=== PATIENT | female | born 1955 | race Two or more races ===

== ENCOUNTER 2018-01-26 10:59 | Day surgery (SDC) | payer MEDICARE, OTHER ==
[~2018-01-26 10:59] MED LIST: PROPOFOL INJ 200 MG/20 ML VIAL IV ONE
[2018-01-26] MEDS ORDERED: PROPOFOL INJ 200 MG/20 ML VIAL IV ONE (13:01)
[2018-01-26 13:33] VITALS: BP 121/68
--- NOTE | 2018-01-26 14:23 | Operative Report ---
Operative Report DATE OF SURGERY: 01/26/18 Operative Report: The risks, benefits and alternatives of the procedure including risks of bleeding, perforation requiring surgery I explained to the patient in detail and informed consent was obtained. Patient is brought back to the endoscopy suite and placed in the left, lateral decubital position. Timeout was called. Propofol medications administered. A rectal examination is done which did not reveal any masses, tears or fissures. An Olympus videoscope was inserted into the patient's rectum. The scope was then carefully advanced all the way to the cecum. The cecum was identified by the usual anatomical landmarks including the ileocecal valve as well as the appendiceal office. Photodocumentation is obtained. The scope was then sequentially pulled back via the various segments of the colon including the ascending colon, hepatic flexure, transverse colon, splenic flexure, descending colon finding to the rectosigmoid portions of the colon. Retroflexion maneuvers performed. PREOPERATIVE DIAGNOSIS: Colorectal cancer screening POSTOPERATIVE DIAGNOSIS: Redundant colon. Mild right-sided colon inflammation status post biopsy. Diverticulosis. Internal hemorrhoids OPERATION: Colonoscopy with biopsy SURGEON: JORGE SIMS ANESTHESIA: LMAC TISSUE REMOVED OR ALTERED: As noted above. COMPLICATIONS: None. ESTIMATED BLOOD LOSS: None. INTRAOPERATIVE FINDINGS: As noted above. PROCEDURE: Patient tolerated the procedure well. No immediate postprocedure comp occasions are noted. Patient discharged in good condition. Discharge date 01/26/2018. Discharge diet: Regular. Discharge activity: Regular. 2-3 week follow-up to discuss findings. Patient is instructed call the office or proceed to the emergency room should there be any further problems or questions. We will wait on pathology. Surveillance colonoscopy in 5 years.
== END 2018-01-26 13:45 | disposition home or self-care (01) ==
LOC: END 10:59
PROVIDERS: ATTEND Internal Medicine Gastroenterology
PROC: 0DBF8ZX Excision of Right Large Intestine, Via Natural or Artificial Opening Endoscopic, Diagnostic (ICD-10-PCS; principal; 2018-01-26 14:00)
DX: Z12.11 Encounter for screening for malignant neoplasm of colon (principal); K52.9 Noninfective gastroenteritis and colitis, unspecified; K57.30 Diverticulosis of large intestine without perforation or abscess without bleeding; K64.8 Other hemorrhoids; I10 Essential (primary) hypertension; E78.5 Hyperlipidemia, unspecified; E11.9 Type 2 diabetes mellitus without complications; F17.210 Nicotine dependence, cigarettes, uncomplicated; Z79.899 Other long term (current) drug therapy; Z88.8 Allergy status to other drugs, medicaments and biological substances; Z88.0 Allergy status to penicillin
CPT/HCPCS: 45380; 82962; 88305 ×2; J2704; 811

== ENCOUNTER → 2018-09-16 | Outpatient (CLI) | payer MEDICARE ==
--- NOTE | 2018-09-16 14:58 | RADIOLOGY REPORT (SQ) ---
EXAM DESCRIPTION: CT HEAD WITHOUT COMPLETED DATE/TIME: 09/16/2018 2:20 pm REASON FOR STUDY: ALTERED MENTAL STATUS, UNSPECIFIED Z12.31 ENCNTR SCREEN MAMMOGRAM FOR MALIGNANT N EOPLASM OF RANDI R41.82 ALTERED MENTAL STATUS, UNSPECIFIED COMPARISON: None. TECHNIQUE: Axial images acquired through the brain without intravenous contrast. Images reviewed wi th bone, brain and subdural windows. Additional sagittal and coronal reconstructions were generated. Images stored on PACS. All CT scanners at this facility use dose modulation, iterative reconstruction, and/or weight based d osing when appropriate to reduce radiation dose to as low as reasonably achievable (ALARA). [facility]: Dose Right [facility]: CareDose [facility]: Dose Right [facility]: Teradose 4D [facility]: Smart Technologies RADIATION DOSE: CT Rad equipment meets quality standard of care and radiation dose reduction techniq ues were employed. CTDIvol: 48.6 mGy. DLP: 953 mGy-cm. mGy. LIMITATIONS: None. FINDINGS: VENTRICLES: Normal size and contour. CEREBRUM: There is encephalomalacia involving the inferior aspect of each frontal lobe, left more chandrika n right. There is encephalomalacia in the left temporal lobe anteriorly. Normal florence/white matter di fferentiation. No areas of low density in the white matter. CEREBELLUM: No masses. No hemorrhage. No alteration of density. No evidence for acute infarction. EXTRAAXIAL SPACES: No fluid collections. No masses. ORBITS AND GLOBE: No intra- or extraconal masses. Normal contour of globe without masses. CALVARIUM: No fracture. PARANASAL SINUSES: No fluid or mucosal thickening. SOFT TISSUES: No mass or hematoma. OTHER: No other significant finding. 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 No acute intracranial imagi ng findings. EVIDENCE OF ACUTE STROKE: NO. COMMENT: Quality ID # [id number]: Final reports with documentation of one or more dose reduction techniques (e.g., Automated exposure control, adjustment of the mA and/or kV according to patient size, use of iterative reconstruction technique) TECHNICAL DOCUMENTATION: JOB ID: [id number] [email or web address]- All Rights Reserved Reading location - IP/workstation name: [email or web address]
--- NOTE | 2018-09-16 15:35 | WOMENS IMAGING REPORT ---
EXAM DESCRIPTION: 3D SCREENING MAMMO BILAT COMPLETED DATE/TIME: 09/16/2018 1:07 pm REASON FOR STUDY: SCREENING MAMMO Z12.31 ENCNTR SCREEN MAMMOGRAM FOR MALIGNANT NEOPLASM OF RANDI COMPARISON: None. TECHNIQUE: Standard craniocaudal and mediolateral oblique views of each breast recorded using digita l acquisition and breast tomosynthesis. LIMITATIONS: None. FINDINGS: Findings present which are benign by mammographic criteria. No suspicious masses, calcifi cations or architectural distortion. Pertinent benign findings: Asymmetry left. Read with the assistance of CAD. [facility] - R2 Cenova Version 1.3 .[facility] - R2 Cenova Version 1.3 .[facility] - R2 Cenova Version 2.4 .[facility] [place] - R2 Cenova Version 2.4 .[facility] - R2 Rn Relief Charge Version 9.2 Benign mammographic findings may include one or more of the following: Smooth masses, popcorn/rim/co arse calcifications, asymmetries, post-procedure changes, and lesions with long-standing stability. IMPRESSION: BENIGN MAMMOGRAPHIC FINDINGS. BIRADS 2 BREAST DENSITY: b. There are scattered areas of fibroglandular density. BIRAD: 2 BENIGN FINDING(S) RECOMMENDATION: RECOMMENDATION: ROUTINE SCREENING COMMENT: The patient has been notified of the results by letter per SA requirements. Additional no tification policies are in place for contacting patient with suspicious or incomplete findings. Quality ID #[id number]: The [employer] recommends an annual screening mammogram for women aged 40 years or over. This facility utilizes a reminder system to ensure that all patients receive reminder letters, and/or direct phone calls for appointments. This includes reminders for routine scr eening mammograms, diagnostic mammograms, or other Breast Imaging Interventions when appropriate. Th is patient will be placed in the appropriate reminder system. The [employer] (ACR) has developed recommendations for screening MRI of the breast s in certain patient populations, to be used in conjunction with mammography. Breast MRI surveillanc e may be appropriate for women with more than 20% lifetime risk of developing breast cancer as deter mined by genetic testing, significant family history of the disease, or history of mantle radiation f or Hodgkins Disease. ACR Practice Guidelines 2008. DBT Technology DBT is a type of tomographic mammography. With conventional mammography, overlapping breast tissue ma y make lesions difficult to detect, even with good compression. DBT uses an x-ray tube that rotates a round the breast, taking images at different angles. These images are then combined to create thin sl ices of the breast that the radiologist can view as a 3D reconstruction. The Hologic unit can perform full-field digital mammograms (2D imaging); or DBT (3D imaging); or both, in a combination mode that quickly performs both the mammogram and the tomosynthesis scan while the breast is still compressed. PQRS 6045F: Fluoroscopic imaging is not utilized for breast tomosynthesis. TECHNICAL DOCUMENTATION: FINDING NUMBER: (1) ASSESSMENT: (1) JOB ID: [id number] [employer]- All Rights Reserved Reading location - IP/workstation name: [email or web address] [email or web address]
== END ==
LOC: WI 12:35
PROVIDERS: ATTEND Physician Assistant
DX: Z12.31 Encounter for screening mammogram for malignant neoplasm of breast (principal); G93.89 Other specified disorders of brain; R41.82 Altered mental status, unspecified
CPT/HCPCS: 70450; 77063; 77067

== ENCOUNTER 2019-08-28 20:08 | Emergency (ER) | payer MEDICARE ==
--- NOTE | 2019-08-28 20:47 | ER Document Report ---
ED General - General Chief Complaint: Altered Mental Status Stated Complaint: CONFUSION Time Seen by Provider: 08/28/19 20:36 Primary Care Provider: ANJALI CUELLAR PA-C [Primary Care Provider] - Follow up in 3-5 days Notes: Patient is a 64-year-old female with history of memory loss and TBI and diabetes that presents to the emergency department for chief complaint of possible confusion. Patient apparently was driving her car, and was speeding, and police do not sirens and were pursuing her, and she did not chute puller initially, and seemed confused to the police officers, and they were concerned she may be under the influence of they brought her to the emergency department. The patient does confirm the story, she states she was driving about [address], and states that she got turned around and was going the wrong direction, she states she does get confused, at times, and was not aware that she was being pursued by police. Her sister is at bedside, and states that the patient is at her baseline, and she does have a degree of confusion, and has been having memory issues. She does not think she is any worse than her baseline. The patient at this time is alert and oriented. Past Medical History: Depression, TBI, diabetes mellitus, essential tremor Past Surgical History: Denies any recent or pertinent surgical history Social History: Lives at home with family, denies tobacco, alcohol or drug use. Family History: Reviewed and noncontributory for presenting illness Allergies: Reviewed, see documented allergy list. REVIEW OF SYSTEMS: Other than noted above, the 12 point review of systems was reviewed with the patient and were negative, all pertinent findings are included in the HPI. PHYSICAL EXAMINATION: Vital signs reviewed, nursing noted reviewed. GENERAL: Well-appearing, well-nourished and in no acute distress. HEAD: Atraumatic, normocephalic. EYES: Eyes appear normal, extraocular movements intact, sclera anicteric, conjunctiva are normal. ENT: nares patent, oropharynx clear without exudates. Moist mucous membranes. NECK: Normal range of motion, supple without lymphadenopathy LUNGS: Breath sounds clear to auscultation bilaterally and equal. No wheezes rales or rhonchi. HEART: Regular rate and rhythm without murmurs ABDOMEN: Soft, nontender, normoactive bowel sounds. No rebound, guarding, or rigidity. No masses appreciated. EXTREMITIES: Nontender, good range of motion, no pitting or edema. NEUROLOGICAL: No focal neurological deficits. Moves all extremities spontaneously Motor and sensory grossly intact on exam. Resting tremor noted on exam, chronic per patient and family PSYCH: Normal mood, normal affect. SKIN: Warm, Dry, normal turgor, no rashes or lesions noted on exposed skin TRAVEL OUTSIDE OF THE [place] IN LAST 30 DAYS: No - Related Data Allergies/Adverse Reactions: acetaminophen [From Coricidin] Allergy (Mild, Verified 01/26/18 11:18) RASH chlorpheniramine [From Coricidin] Allergy (Mild, Verified 01/26/18 11:18) RASH Penicillins Allergy (Mild, Verified 01/26/18 11:18) Hives phenylpropanolamine [From Coricidin] Allergy (Mild, Verified 01/26/18 11:18) RASH Past Medical History - Social History Smoking Status: Never Smoker Family History: Reviewed & Not Pertinent - Past Medical History Cardiac Medical History: Reports: Hx Hypertension Denies: Hx Coronary Artery Disease, Hx Heart Attack Pulmonary Medical History: Denies: Hx Asthma, Hx Bronchitis, Hx COPD, Hx Pneumonia Neurological Medical History: Reports: Hx Seizures - D/T OVERDOSE OF SOME MEDICATION. Denies: Hx Cerebrovascular Accident Musculoskeletal Medical History: Denies Hx Arthritis - Immunizations Hx Diphtheria, Pertussis, Tetanus Vaccination: No Physical Exam - Vital signs Vitals: Temp Resp BP Pulse Ox 97.7 F 27 H 111/96 H 96 08/28/19 20:24 08/28/19 20:24 08/28/19 20:24 08/28/19 20:24 Course - Re-evaluation Re-evalutation: Patient seen and examined, vital signs reviewed, patient appeared to be at her baseline according to her family, please felt the patient may be under the influence, but I feel that this is the patient's baseline mental state, I am concerned now that she was getting confused with driving, and it was nighttime, and I feel it would be in her best interest not to drive until having testing at the [facility], or discussing with her primary care doing specific memory testing to see if she should even be driving at all. Sister and patient were in agreement with this. Do not think any further testing is needed at this time, blood work had been drawn already and sent that was ordered by triage, and was reviewed she had a mild hypokalemia, advised to increase potassium in the diet, otherwise blood work was unremarkable. At this point patient was discharged to follow-up as noted above. Laboratory 08/28/19 08/28/19 08/28/19 19:50 19:50 19:50 WBC 6.2 RBC 4.02 Hgb 12.8 Hct 37.0 MCV 92 MCH 31.8 MCHC 34.6 RDW 13.5 Plt Count 269 Lymph % (Auto) 35.8 Rooks % (Auto) 8.9 Eos % (Auto) 1.3 Baso % (Auto) 0.4 Absolute Neuts (auto) 3.3 Absolute Lymphs (auto) 2.2 Absolute Monos (auto) 0.6 Absolute Eos (auto) 0.1 Absolute Basos (auto) 0.0 Seg Neutrophils % 53.6 PT 12.2 INR 0.91 APTT 28.8 Sodium 134.9 L Potassium 3.2 L Chloride 96 L Carbon Dioxide 28 Anion Gap 11 BUN 21 H Creatinine 0.94 Est GFR ( Amer) > 60 Est GFR (MDRD) Non-Af > 60 Glucose 227 H Calcium 9.7 Magnesium 1.8 Total Bilirubin 0.3 Direct Bilirubin 0.1 Neonat Total Bilirubin Not Reportable Neonat Direct Bilirubin Not Reportable Neonat Indirect Bili Not Reportable AST 32 ALT 18 Alkaline Phosphatase 114 Creatine Kinase 55 CK-MB (CK-2) Troponin I Total Protein 8.2 Albumin 4.4 Urine Color Urine Appearance Urine pH Ur Specific [place] Urine Protein Urine Glucose (UA) Urine Ketones Urine Blood Urine Nitrite Urine Bilirubin Urine Urobilinogen Ur Leukocyte Esterase Urine WBC (Auto) Urine RBC (Auto) Urine Bacteria (Auto) Squamous Epi Cells Auto Urine Mucus (Auto) Urine Ascorbic Acid Urine Opiates Screen Urine Methadone Screen Ur Barbiturates Screen Ur Phencyclidine Scrn Ur Amphetamines Screen U Benzodiazepines Scrn Urine Cocaine Screen U Marijuana (THC) Screen Serum Alcohol < 10 08/28/19 08/28/19 08/28/19 19:50 20:13 20:13 WBC RBC Hgb Hct MCV MCH MCHC RDW Plt Count Lymph % (Auto) Rooks % (Auto) Eos % (Auto) Baso % (Auto) Absolute Neuts (auto) Absolute Lymphs (auto) Absolute Monos (auto) Absolute Eos (auto) Absolute Basos (auto) Seg Neutrophils % PT INR APTT Sodium Potassium Chloride Carbon Dioxide Anion Gap BUN Creatinine Est GFR ( Amer) Est GFR (MDRD) Non-Af Glucose Calcium Magnesium Total Bilirubin Direct Bilirubin Neonat Total Bilirubin Neonat Direct Bilirubin Neonat Indirect Bili AST ALT Alkaline Phosphatase Creatine Kinase CK-MB (CK-2) 0.57 Troponin I < 0.012 Total Protein Albumin Urine Color YELLOW Urine Appearance SLIGHTLY-CLOUDY Urine pH 5.0 Ur Specific [place] 1.013 Urine Protein NEGATIVE Urine Glucose (UA) NEGATIVE Urine Ketones NEGATIVE Urine Blood NEGATIVE Urine Nitrite NEGATIVE Urine Bilirubin NEGATIVE Urine Urobilinogen NEGATIVE Ur Leukocyte Esterase TRACE H Urine WBC (Auto) 6 Urine RBC (Auto) 3 Urine Bacteria (Auto) TRACE Squamous Epi Cells Auto 3 Urine Mucus (Auto) RARE Urine Ascorbic Acid 40 H Urine Opiates Screen NEGATIVE Urine Methadone Screen NEGATIVE Ur Barbiturates Screen NEGATIVE Ur Phencyclidine Scrn NEGATIVE Ur Amphetamines Screen NEGATIVE U Benzodiazepines Scrn NEGATIVE Urine Cocaine Screen NEGATIVE U Marijuana (THC) Screen NEGATIVE Serum Alcohol - Vital Signs Vital signs: Temp Pulse Resp BP Pulse Ox 97.7 F 19 146/84 H 96 08/28/19 20:24 08/28/19 20:25 08/28/19 20:34 08/28/19 20:25 - Laboratory Result Diagrams: 08/28/19 19:50 08/28/19 19:50 Laboratory results interpreted by me: 08/28/19 08/28/19 19:50 20:13 Sodium 134.9 L Potassium 3.2 L Chloride 96 L BUN 21 H Glucose 227 H Ur Leukocyte Esterase TRACE H Urine Ascorbic Acid 40 H Discharge - Discharge Clinical Impression: Confusion Condition: Stable Disposition: HOME, SELF-CARE Additional Instructions: Until you can be seen by your primary care physician, I recommend not driving or operating a motor vehicle, please go to the DMV, to have seasonal driver testing, after this incident, I think that is the safest thing to do going forward. Referrals: ANJALI CUELLAR PA-C [Primary Care Provider] - Follow up in 3-5 days
[2019-08-28 20:56] LABS: INTERNATIONAL RATION (INR) 0.91; PROTHROMBIN TIME 12.2 SEC (11.4-15.4)
[2019-08-28 20:57] LABS: PARTIAL THROMBOPLASTIN TIME 28.8 SEC (23.5-35.8)
[2019-08-28 21:00] LABS: ABSOLUTE EOSINOPHILS # (AUTO) 0.1 10^3/uL (0.0-0.6); ABSOLUTE LYMPHOCYTES (AUTO) 2.2 10^3/uL (0.5-4.7); ABSOLUTE MONOCYTES (AUTO) 0.6 10^3/uL (0.1-1.4); ABSOLUTE NEUT (AUTO) 3.3 10^3/uL (1.7-8.2); BASOPHILS % (AUTO) 0.4 % (0-2); EOSINOPHILS % (AUTO) 1.3 % (0-6); HEMOGLOBIN 12.8 g/dL (12.0-15.5); LYMPHOCYTES % (AUTO) 35.8 % (13-45); MEAN CORPUSCULAR HEMOGLOBIN 31.8 pg (27.0-33.4); MEAN CORPUSCULAR HGB CONC 34.6 g/dL (32.0-36.0); MEAN CORPUSCULAR VOLUME 92 fl (80-97); MONOCYTES % (AUTO) 8.9 % (3-13); PLATELET COUNT 269 10^3/uL (150-450); RED BLOOD COUNT 4.02 10^6/uL (3.72-5.28); RED CELL DISTRIBUTION WIDTH 13.5 % (11.5-14.0); SEGMENTED NEUTROPHILS % (AUTO) 53.6 % (42-78); TOTAL CELLS COUNTED % (AUTO) 100 %; WHITE BLOOD COUNT 6.2 10^3/uL (4.0-10.5)
[2019-08-28 21:07] LABS: ALBUMIN 4.4 g/dL (3.5-5.0); ALCOHOL < 10 mg/dL (NONE DETECTED); ALKALINE PHOSPHATASE 114 U/L (38-126); ANION GAP 11 (5-19); ASPARTATE AMINO TRANSFERASE 32 U/L (14-36); BILIRUBIN,DIRECT 0.1 mg/dL (0.0-0.4); BILIRUBIN,TOTAL 0.3 mg/dL (0.2-1.3); BLOOD UREA NITROGEN 21 mg/dL (7-20); CALCIUM 9.7 mg/dL (8.4-10.2); CARBON DIOXIDE 28 mmol/L (22-30); CHLORIDE 96 mmol/L (98-107); CREATINE KINASE 55 U/L (30-135); GLUCOSE 227 mg/dL (75-110); POTASSIUM 3.2 mmol/L (3.6-5.0); TOTAL PROTEIN 8.2 g/dL (6.3-8.2)
[2019-08-28 21:07] LABS: APPEARANCE,URINE SLIGHTLY-CLOUDY; BILIRUBIN,URINE NEGATIVE (NEGATIVE); COLOR,URINE YELLOW; GLUCOSE, URINE NEGATIVE (NEGATIVE); KETONES,URINE NEGATIVE (NEGATIVE); LEUKOCYTE ESTERASE,URINE TRACE (NEGATIVE); NITRITE,URINE NEGATIVE (NEGATIVE); PROTEIN,URINE NEGATIVE (NEGATIVE); URINE SPECIFIC GRAVITY 1.013; UROBILINOGEN,URINE NEGATIVE mg/dL (<2.0)
[2019-08-28 21:15] LABS: URINE AMPHETAMINES SCREEN NEGATIVE; URINE BARBITURATES SCREEN NEGATIVE; URINE BENZODIAZEPINES SCREEN NEGATIVE; URINE COCAINE SCREEN NEGATIVE; URINE MARIJUANA (THC) SCREEN NEGATIVE; URINE METHADONE SCREEN NEGATIVE; URINE PHENCYCLIDINE SCREEN NEGATIVE
[2019-08-28 21:16] LABS: CREATINE KINASE MB 0.57 ng/mL (<4.55)
[2019-08-28 21:19] LABS: TROPONIN I < 0.012 ng/mL
[2019-08-28 21:22] VITALS: BP 146/84
== END 2019-08-28 21:18 | disposition home or self-care (01) ==
LOC: ER 20:08
DX: R41.0 Disorientation, unspecified (principal); E87.6 Hypokalemia; R25.1 Tremor, unspecified; I10 Essential (primary) hypertension; E11.9 Type 2 diabetes mellitus without complications; Z87.820 Personal history of traumatic brain injury; Z88.8 Allergy status to other drugs, medicaments and biological substances; Z88.0 Allergy status to penicillin
CPT/HCPCS: 36415; 80053; 80307; 81001; 82550; 82553; 83735; 84484; 85025; 85610; 85730; 99285

== ENCOUNTER 2019-09-24 12:26 | Emergency (ER) | payer MEDICARE ==
--- NOTE | 2019-09-24 13:17 | ER Document Report ---
ED Medical Screen (RME) - General Chief Complaint: Fall Stated Complaint: FALL-HEAD INJURY Time Seen by Provider: 09/24/19 13:13 Primary Care Provider: ANJALI CUELLAR PA-C [Primary Care Provider] - Follow up as needed Mode of Arrival: Ambulatory Information source: Patient Notes: 64-year-old female presented to ED for head injury last night at 4:30 in the morning. She states she went outside to smoke picked up her folding chair started to come into the house was landing on her chair slipped and fell hitting her head on the cement. She denies any loss of consciousness. Denies any nausea or vomiting. She states she is not on any blood thinners. No change in orientation. She states she is not having any headache at this time. I will have her seen by another provider to have the injury cleaned to the back of the head and examined. She smokes a pack a day denies alcohol or illicit drugs. I have greeted and performed a rapid initial assessment of this patient. A comprehensive ED assessment and evaluation of the patient, analysis of test results and completion of medical decision making process will be conducted by an additional ED providers. TRAVEL OUTSIDE OF THE [place] IN LAST 30 DAYS: No - Related Data Allergies/Adverse Reactions: acetaminophen [From Coricidin] Allergy (Mild, Verified 01/26/18 11:18) RASH chlorpheniramine [From Coricidin] Allergy (Mild, Verified 01/26/18 11:18) RASH Penicillins Allergy (Mild, Verified 01/26/18 11:18) Hives phenylpropanolamine [From Coricidin] Allergy (Mild, Verified 01/26/18 11:18) RASH Past Medical History - Past Medical History Cardiac Medical History: Reports: Hx Hypercholesterolemia, Hx Hypertension Denies: Hx Coronary Artery Disease, Hx Heart Attack Pulmonary Medical History: Denies: Hx Asthma, Hx Bronchitis, Hx COPD, Hx Pneumonia Neurological Medical History: Reports: Hx Seizures - D/T OVERDOSE OF SOME MEDICATION. Denies: Hx Cerebrovascular Accident Endocrine Medical History: Reports: Hx Diabetes Mellitus Type 2 Musculoskeltal Medical History: Denies Hx Arthritis Psychiatric Medical History: Reports: Hx Bipolar Disorder, Hx Depression - Immunizations Hx Diphtheria, Pertussis, Tetanus Vaccination: No Physical Exam - Vital signs Vitals: Temp Pulse Resp BP Pulse Ox 97.5 F 75 22 H 130/70 H 97 09/24/19 12:34 09/24/19 12:34 09/24/19 12:34 09/24/19 12:34 09/24/19 12:34 Course - Vital Signs Vital signs: Temp Pulse Resp BP Pulse Ox 97.5 F 75 22 H 130/70 H 97 09/24/19 12:34 09/24/19 12:34 09/24/19 12:34 09/24/19 12:34 09/24/19 12:34 Doctor's Discharge - Discharge Referrals: ANJALI CUELLAR PA-C [Primary Care Provider] - Follow up as needed
[2019-09-24] MEDS ORDERED: DIPH/PERTUSS(ACELL)/TETANUS VAC/PF 0.5 ML SYR (>=10YO) IM ONE (16:02)
--- NOTE | 2019-09-24 16:21 | ER Document Report ---
HPI - HPI Time Seen by Provider: 09/24/19 13:13 Pain Level: Denies Context: Patient is a 64-year-old female with a history of hypertension, high cholesterol, type 2 diabetes, CVA, TBI as a child, bipolar who presents to the emergency department with chief complaint of head injury. Patient states last night around 4:30 in the morning she went outside to smoke a cigarette. Patient reports as she was ambulating back into the house her hands were full and she was carrying a lawn chair. Patient reports she thinks she lost her footing causing her to fall backwards hitting her head. Patient reports she did hit her head on the cement. Patient denies a loss of consciousness. Patient denies vomiting afterwards. Patient does live with her sister. Sister states that the patient has been acting herself. She reports patient has eaten without vomiting. She states the patient has not had any repetitive speech or altered level of consciousness. Patient and sister deny use of blood thinners on the patient. Sister states that she did have a CVA 6 to 7 months ago and at that time was having issues with her balance. Patient reports having some bleeding noted to the back of the head. She reports the blood has now dried but she is unsure if there is a laceration present. Patient denies back or neck pain. - CONSTITUTIONAL Constitutional: DENIES: Fever, Chills - REPRODUCTIVE Reproductive: DENIES: : Past Medical History - General Information source: Patient - Social History Smoking Status: Current Every Day Smoker Chew tobacco use (# tins/day): No Frequency of alcohol use: None Drug Abuse: None Lives with: Family Family History: Reviewed & Not Pertinent Patient has suicidal ideation: No Patient has homicidal ideation: No - Past Medical History Cardiac Medical History: Reports: Hx Hypercholesterolemia, Hx Hypertension Denies: Hx Coronary Artery Disease, Hx Heart Attack Pulmonary Medical History: Reports: None Denies: Hx Asthma, Hx Bronchitis, Hx COPD, Hx Pneumonia EENT Medical History: Reports: None Neurological Medical History: Reports: Hx Seizures - D/T OVERDOSE OF SOME MEDICATION. Denies: Hx Cerebrovascular Accident Endocrine Medical History: Reports: Hx Diabetes Mellitus Type 2 Renal/ Medical History: Reports: None Malignancy Medical History: Reports: None GI Medical History: Reports: None Musculoskeletal Medical History: Reports None, Denies Hx Arthritis Skin Medical History: Reports None Psychiatric Medical History: Reports: Hx Bipolar Disorder, Hx Depression Traumatic Medical History: Reports: Hx Traumatic Brain Injury Infectious Medical History: Reports: None - Immunizations Hx Diphtheria, Pertussis, Tetanus Vaccination: No Vertical Provider Document - CONSTITUTIONAL Agree With Documented VS: Yes Exam Limitations: No Limitations General Appearance: No Apparent Distress Notes: GENERAL: Well-appearing, well-nourished and in no acute distress. HEAD: Hematoma noted posterior aspect of the parietal bone, dried blood without active bleeding, normocephalic. Negative varela's sign. EYES: Pupils equal round and reactive to light - 3 mm bilaterally, glasses intact, extraocular movements intact, sclera anicteric, conjunctiva are normal. ENT: TMs normal, nares patent, oropharynx clear without exudates. Moist mucous membranes. NECK: Normal range of motion, supple without lymphadenopathy or JVD. LUNGS: Breath sounds clear to auscultation bilaterally and equal. No wheezes rales or rhonchi. HEART: Regular rate and rhythm without murmurs, rubs or gallops. ABDOMEN: Soft, nontender, normoactive bowel sounds. No guarding, no rebound. No masses appreciated. BACK: No cervical, thoracic, lumbar midline tenderness. No saddle anesthesia, normal distal neurovascular exam. GENITOURINARY: Deferred. EXTREMITIES: Normal range of motion, no pitting or edema. No clubbing or cyanosis. NEUROLOGICAL: Cranial nerves II through XII grossly intact. Normal speech, normal gait. PSYCH: Normal mood, normal affect. SKIN: Warm, Dry, normal turgor, no rashes or lesions noted. - INFECTION CONTROL TRAVEL OUTSIDE OF THE [place] IN LAST 30 DAYS: No Course - Re-evaluation Re-evalutation: 09/24/19 16:41 Patient attempted to go outside to smoke a cigarette. Patient reports she does smoke 2 packs of cigarettes per day. We did inform her that we are waiting on her CT scan results. The wound to the back of the head was cleansed. There is no laceration. This appears to be more of an abrasion. There is no active bleeding. Patient's Tdap was updated as the patient was unsure when her last tetanus shot was. 09/24/19 17:11 Upon reevaluation patient's head CT was negative. I did show an old injury to the frontal lobe which the patient had told us about due to her history of TBI. Patient mentating appropriately. Tetanus was updated. I did discuss strict return precautions with the sister and patient. - Vital Signs Vital signs: Temp Pulse Resp BP Pulse Ox 97.5 F 75 22 H 130/70 H 97 09/24/19 12:34 09/24/19 12:34 09/24/19 12:34 09/24/19 12:34 09/24/19 12:34 - Diagnostic Test Radiology reviewed: Reports reviewed Radiology results interpreted by me: 09/24/19 17:[address] 09/24/19 15:59 IMPRESSION: NO ACUTE INTRACRANIAL FINDINGS. EVIDENCE OF ACUTE STROKE: NO. Discharge - Discharge Clinical Impression: Fall Qualifiers: Encounter type: initial encounter Qualified Code(s): W19.XXXA - Unspecified fall, initial encounter Head injury Qualifiers: Encounter type: initial encounter Qualified Code(s): S09.90XA - Unspecified injury of head, initial encounter Condition: Stable Disposition: HOME, SELF-CARE Additional Instructions: Today you are seen in emergency department after a head injury. Your CT scan was negative for any acute fracture or bleed. The wound to your head was cleaned and a tetanus shot was given. You are being placed on head injury precautions. Please have your family member check on you multiple times throughout the next 24 hours. Please rest. Please return the emergency department for any persistent or projectile vomiting, seizure, confusion, unequal pupil size, difficulty arousing the patient or any worsening pain such as a continued headache severe headache. Head Injury Your child's examination shows no evidence of brain injury. The child can therefore be safely observed at home. Give clear liquids only for the first eight hours. Acetaminophen or ibuprofen can safely be given for pain. Follow the directions on the bottle. Do not give any medication that may alter her/his level of alertness. Limit activity for the first 24 hours -- bed rest is advisable at first. Several times during the first 24 hours, check the patient to see if the pupils are equal in size to each other, that the patient is easily arousable, and responds normally. Contact your doctor or go to the hospital if any of the following things occur: Persistent or projectile vomiting, a seizure, confusion, unequal pupil size, difficulty in arousing the patient, worsening or continued headache, or failure to improve as expected. Head Injury Precautions At this point, there is no evidence that your head injury is serious. Observation is necessary, however. Take only clear liquids for the first few hours, unless told otherwise by the doctor. If no pain medication was prescribed, you may take acetaminophen according to the directions on the bottle. Do not take any medication that may alter your level of alertness (unless you've discussed it with the doctor first). Limit activity for the first 24 hours. Bed rest is best. During the first 24 hours, check to see approximately every two to three hours that the patient is easily arousable, responds normally, and can perform common tasks such as walking without difficulty. Contact your doctor or go to the hospital if any of the following things occur: Persistent vomiting, difficulty in arousing the patient, worsening or continued headache, or failure to improve as expected. Head injuries can cause symptoms that persist for a few days or even a few weeks. Tetanus Immunization Given You have been given an immunization against tetanus. Please record this in your records. In general, a booster is needed only once every 10 years. The tetanus shot protects against tetanus or "lockjaw," which is a complication of certain wound infections (the tetanus shot cannot protect against the actual infection). The immunization site may become warm and red due to local reaction. If this occurs, apply warm compresses and take aspirin or ibuprofen to reduce inflammation and discomfort. Return for evaluation if the reaction becomes severe. Forms: Smoking Cessation Education Referrals: ANJALI CUELLAR PA-C [Primary Care Provider] - Follow up as needed
--- NOTE | 2019-09-24 17:00 | RADIOLOGY REPORT (SQ) ---
EXAM DESCRIPTION: CT HEAD WITHOUT COMPLETED DATE/TIME: 09/24/2019 4:19 pm REASON FOR STUDY: fall, hematoma back of head, hx. tbi COMPARISON: 09/16/2018 TECHNIQUE: Axial images acquired through the brain without intravenous contrast. Images reviewed wit h bone, brain and subdural windows. Images stored on PACS. All CT scanners at this facility use dose modulation, iterative reconstruction, and/or weight based d osing when appropriate to reduce radiation dose to as low as reasonably achievable (ALARA). [facility]: Dose Right [facility]: CareDose [facility]: Dose Right [facility]: Teradose 4D [facility]: Smart IPX RADIATION DOSE: CT Rad equipment meets quality standard of care and radiation dose reduction techniq ues were employed. CTDIvol: 53.2 mGy. DLP: 991 mGy-cm.. LIMITATIONS: None. FINDINGS: VENTRICLES: Normal size and contour. CEREBRUM: No hemorrhage. No midline shift. Stable appearance of frontal encephalomalacia and bilate ral periventricular white matter. No evidence for acute infarction. CEREBELLUM: No masses. No hemorrhage. No alteration of density. No evidence for acute infarction. EXTRA-AXIAL SPACES: No fluid collections. ORBITS AND GLOBE: No intra- or extraconal masses. Normal contour of globe without masses. CALVARIUM: No fracture. PARANASAL SINUSES: No fluid or mucosal thickening. SOFT TISSUES: No mass or hematoma. Minimal subcutaneous swelling in the right parietal region. OTHER: No other significant finding. IMPRESSION: NO ACUTE INTRACRANIAL FINDINGS. EVIDENCE OF ACUTE STROKE: NO. TECHNICAL DOCUMENTATION: JOB ID: [id number] [place]-72 Quality ID # [id number]: Final reports with documentation of one or more dose reduction techniques (e.g., Au tomated exposure control, adjustment of the mA and/or kV according to patient size, use of iterative reconstruction technique) 2010 [employer]- All Rights Reserved Reading location - IP/workstation name: [email or web address]
[2019-09-24 17:24] VITALS: BP 143/73
== END 2019-09-24 17:25 | disposition home or self-care (01) ==
LOC: ER 12:26
DX: S00.83XA Contusion of other part of head, initial encounter (principal); W10.9XXA Fall (on) (from) unspecified stairs and steps, initial encounter; Y93.89 Activity, other specified; Y92.009 Unspecified place in unspecified non-institutional (private) residence as the place of occurrence of the external cause; F17.210 Nicotine dependence, cigarettes, uncomplicated; I10 Essential (primary) hypertension; E11.9 Type 2 diabetes mellitus without complications; Z23 Encounter for immunization
CPT/HCPCS: 70450; 90471; 90715; 99283

== ENCOUNTER → 2019-10-01 | Outpatient (CLI) | payer MEDICARE ==
[~2019-10-01] MED LIST changes: +ALBUTEROL SULFATE 0.083% NEB 2.5 MG/3 ML AMPUL NEB ONE; -PROPOFOL INJ 200 MG/20 ML VIAL IV ONE
--- NOTE | 2019-10-01 14:19 | RADIOLOGY REPORT (SQ) ---
EXAM DESCRIPTION: CHEST 2 VIEWS COMPLETED DATE/TIME: 10/01/2019 2:05 pm REASON FOR STUDY: R06.00 DYSPNEA, UNSPECIFIED COMPARISON: None. EXAM PARAMETERS: NUMBER OF VIEWS: two views TECHNIQUE: Digital Frontal and Lateral radiographic views of the chest acquired. RADIATION DOSE: NA LIMITATIONS: none FINDINGS: LUNGS AND PLEURA: No opacities, masses or pneumothorax. No pleural effusion. MEDIASTINUM AND HILAR STRUCTURES: No masses or contour abnormalities. HEART AND VASCULAR STRUCTURES: Heart normal size. No evidence for failure. BONES: No acute findings. HARDWARE: None in the chest. OTHER: No other significant finding. IMPRESSION: NO ACUTE RADIOGRAPHIC FINDING IN THE CHEST. TECHNICAL DOCUMENTATION: JOB ID: [id number] [employer]- All Rights Reserved Reading location - IP/workstation name: [email or web address]
== END ==
LOC: RT 12:51
PROVIDERS: ATTEND Physician Assistant
DX: R06.00 Dyspnea, unspecified (principal)
CPT/HCPCS: 71046; 94729; 94727; 94060; A9270

== ENCOUNTER 2019-10-03 11:39 | Emergency (ER) | payer MEDICARE ==
[2019-10-03] MEDS ORDERED: DIPH/PERTUSS(ACELL)/TETANUS VAC/PF 0.5 ML SYR (>=10YO) IM ONE (12:01)
--- NOTE | 2019-10-03 12:02 | ER Document Report ---
ED Medical Screen (RME) - General Chief Complaint: Fall Stated Complaint: FALL/HEAD LACERATION Time Seen by Provider: 10/03/19 11:53 Primary Care Provider: ANJALI CUELLAR PA-C [Primary Care Provider] - Follow up as needed Information source: Patient Notes: Patient states that she was in a store checking out at the register stepped back fell and hit her head on the floor. Patient with laceration to occipital scalp area. Patient complains of headache and lightheadedness at this time. Patient states she did not lose consciousness. Patient reports a similar fall 9 days ago in which she was seen here previously. Patient denies any chest pain, shortness of breath or abdominal pain. Patient does complain of feeling lightheaded. I have greeted and performed a rapid initial assessment of this patient. A comprehensive ED assessment and evaluation of the patient, analysis of test results and completion of the medical decision making process will be conducted by additional ED providers. TRAVEL OUTSIDE OF THE [place] IN LAST 30 DAYS: No - Related Data Allergies/Adverse Reactions: acetaminophen [From Coricidin] Allergy (Mild, Verified 01/26/18 11:18) RASH chlorpheniramine [From Coricidin] Allergy (Mild, Verified 01/26/18 11:18) RASH Penicillins Allergy (Mild, Verified 01/26/18 11:18) Hives phenylpropanolamine [From Coricidin] Allergy (Mild, Verified 01/26/18 11:18) RASH Past Medical History - Social History Frequency of alcohol use: None Drug Abuse: None - Past Medical History Cardiac Medical History: Reports: Hx Hypercholesterolemia, Hx Hypertension Denies: Hx Coronary Artery Disease, Hx Heart Attack Pulmonary Medical History: Denies: Hx Asthma, Hx Bronchitis, Hx COPD, Hx Pneumonia Neurological Medical History: Reports: Hx Seizures - D/T OVERDOSE OF SOME MEDICATION. Denies: Hx Cerebrovascular Accident Endocrine Medical History: Reports: Hx Diabetes Mellitus Type 2 Musculoskeltal Medical History: Denies Hx Arthritis Psychiatric Medical History: Reports: Hx Bipolar Disorder, Hx Depression Traumatic Medical History: Reports: Hx Traumatic Brain Injury - Immunizations Hx Diphtheria, Pertussis, Tetanus Vaccination: No Physical Exam - Vital signs Vitals: Temp Pulse Resp BP Pulse Ox 97.4 F 77 18 166/81 H 95 10/03/19 11:51 10/03/19 11:51 10/03/19 11:51 10/03/19 11:51 10/03/19 11:51 - General General appearance: Alert Notes: Laceration to occipital scalp Course - Vital Signs Vital signs: Temp Pulse Resp BP Pulse Ox 97.4 F 77 18 166/81 H 95 10/03/19 11:51 10/03/19 11:51 10/03/19 11:51 10/03/19 11:51 10/03/19 11:51 Doctor's Discharge - Discharge Referrals: ANJALI CUELLAR PA-C [Primary Care Provider] - Follow up as needed
[2019-10-03 12:27] LABS: ABSOLUTE BASOPHILS # (AUTO) 0.1 10^3/uL (0.0-0.2); ABSOLUTE EOSINOPHILS # (AUTO) 0.1 10^3/uL (0.0-0.6); ABSOLUTE LYMPHOCYTES (AUTO) 2.1 10^3/uL (0.5-4.7); ABSOLUTE MONOCYTES (AUTO) 0.3 10^3/uL (0.1-1.4); BASOPHILS % (AUTO) 0.8 % (0-2); EOSINOPHILS % (AUTO) 1.5 % (0-6); HEMATOCRIT 38.1 % (36.0-47.0); LYMPHOCYTES % (AUTO) 32.5 % (13-45); MEAN CORPUSCULAR VOLUME 94 fl (80-97); MONOCYTES % (AUTO) 4.1 % (3-13); PLATELET COUNT 269 10^3/uL (150-450); RED BLOOD COUNT 4.05 10^6/uL (3.72-5.28); RED CELL DISTRIBUTION WIDTH 13.4 % (11.5-14.0); SEGMENTED NEUTROPHILS % (AUTO) 61.1 % (42-78); TOTAL CELLS COUNTED % (AUTO) 100 %; WHITE BLOOD COUNT 6.6 10^3/uL (4.0-10.5)
[2019-10-03 12:49] LABS: ALBUMIN 4.4 g/dL (3.5-5.0); ALCOHOL < 10 mg/dL (NONE DETECTED); ALKALINE PHOSPHATASE 108 U/L (38-126); ANION GAP 10 (5-19); ASPARTATE AMINO TRANSFERASE 24 U/L (14-36); BILIRUBIN,DIRECT 0.1 mg/dL (0.0-0.4); BILIRUBIN,TOTAL 0.4 mg/dL (0.2-1.3); BLOOD UREA NITROGEN 19 mg/dL (7-20); CALCIUM 9.7 mg/dL (8.4-10.2); CARBON DIOXIDE 28 mmol/L (22-30); CHLORIDE 98 mmol/L (98-107); GLUCOSE 273 mg/dL (75-110); POTASSIUM 3.5 mmol/L (3.6-5.0); TOTAL PROTEIN 7.8 g/dL (6.3-8.2)
--- NOTE | 2019-10-03 13:23 | RADIOLOGY REPORT (SQ) ---
EXAM DESCRIPTION: CT HEAD WITHOUT COMPLETED DATE/TIME: 10/03/2019 12:52 pm REASON FOR STUDY: fall, headache, [place] COMPARISON: 09 24 2019. TECHNIQUE: Axial images acquired through the brain without intravenous contrast. Images reviewed wi th bone, brain and subdural windows. Images stored on PACS. All CT scanners at this facility use dose modulation, iterative reconstruction, and/or weight based d osing when appropriate to reduce radiation dose to as low as reasonably achievable (ALARA). [facility]: Dose Right [facility]: CareDose [facility]: Dose Right [facility]: Teradose 4D [facility]: Smart [employer] RADIATION DOSE: CT Rad equipment meets quality standard of care and radiation dose reduction techniq ues were employed. CTDIvol: 53.2 mGy. DLP: 1017 mGy-cm. mGy. LIMITATIONS: None. FINDINGS: VENTRICLES: Normal size and contour. CEREBRUM: No significant change in bifrontal encephalomalacia. No hemorrhage. No midline shift. No evidence for acute infarction. Decreased attenuation periventricular white matter consistent chronic white matter change. CEREBELLUM: No masses. No hemorrhage. No alteration of density. No evidence for acute infarction. EXTRAAXIAL SPACES: No fluid collections. No masses. ORBITS AND GLOBE: No intra- or extraconal masses. Normal contour of globe without masses. CALVARIUM: No fracture. PARANASAL SINUSES: No fluid or mucosal thickening. SOFT TISSUES: Scalp hematoma right parietal region. OTHER: No other significant finding. IMPRESSION: No significant interval change. Scalp hematoma right parietal region. EVIDENCE OF ACUTE STROKE: NO. COMMENT: Quality ID # [id number]: Final reports with documentation of one or more dose reduction techniques (e.g., Automated exposure control, adjustment of the mA and/or kV according to patient size, use of iterative reconstruction technique) TECHNICAL DOCUMENTATION: JOB ID: [id number] [place]-69 2010 [employer]- All Rights Reserved Reading location - IP/workstation name: [email or web address]
--- NOTE | 2019-10-03 13:26 | RADIOLOGY REPORT (SQ) ---
EXAM DESCRIPTION: CHEST SINGLE VIEW COMPLETED DATE/TIME: 10/03/2019 1:07 pm REASON FOR STUDY: light headed, freq falls COMPARISON: 10/01/2019. EXAM PARAMETERS: NUMBER OF VIEWS: One view. TECHNIQUE: Single frontal radiographic view of the chest acquired. RADIATION DOSE: NA LIMITATIONS: Expiratory technique. FINDINGS: LUNGS AND PLEURA: No acute infiltrates or effusions. MEDIASTINUM AND HILAR STRUCTURES: No masses. Contour normal. HEART AND VASCULAR STRUCTURES: The heart pulmonary vasculature are normal. BONES: No acute findings. HARDWARE: None in the chest. OTHER: No other significant finding. IMPRESSION: NO ACUTE DISEASE. TECHNICAL DOCUMENTATION: JOB ID: [id number] SC-[id number] 2010 [employer]- All Rights Reserved Reading location - IP/workstation name: [email or web address]
--- NOTE | 2019-10-03 13:54 | ER Document Report ---
ED Fall - General Chief Complaint: Fall Stated Complaint: FALL/HEAD LACERATION Time Seen by Provider: 10/03/19 11:53 Primary Care Provider: ANJALI CUELLAR PA-C [Primary Care Provider] - Follow up as needed Information source: Patient Notes: Patient states that she was in a store checking out at the register stepped back fell and hit her head on the floor. Patient with laceration to occipital scalp area. Patient complains of headache and lightheadedness at this time. Patient states she did not lose consciousness. Patient reports a similar fall 9 days ago in which she was seen here previously. Patient denies any chest pain, shortness of breath or abdominal pain. Patient does complain of feeling lightheaded. TRAVEL OUTSIDE OF THE [place] IN LAST 30 DAYS: No - Related data Allergies/Adverse Reactions: acetaminophen [From Coricidin] Allergy (Mild, Verified 01/26/18 11:18) RASH chlorpheniramine [From Coricidin] Allergy (Mild, Verified 01/26/18 11:18) RASH Penicillins Allergy (Mild, Verified 01/26/18 11:18) Hives phenylpropanolamine [From Coricidin] Allergy (Mild, Verified 01/26/18 11:18) RASH Past Medical History - General Information source: Patient - Social History Smoking Status: Current Every Day Smoker Frequency of alcohol use: None Drug Abuse: None Family History: Reviewed & Not Pertinent Patient has suicidal ideation: No Patient has homicidal ideation: No - Past Medical History Cardiac Medical History: Reports: Hx Hypercholesterolemia, Hx Hypertension Denies: Hx Coronary Artery Disease, Hx Heart Attack Pulmonary Medical History: Denies: Hx Asthma, Hx Bronchitis, Hx COPD, Hx Pneumonia Neurological Medical History: Reports: Hx Seizures - D/T OVERDOSE OF SOME MEDICATION. Denies: Hx Cerebrovascular Accident Endocrine Medical History: Reports: Hx Diabetes Mellitus Type 2 Musculoskeletal Medical History: Denies Hx Arthritis Psychiatric Medical History: Reports: Hx Bipolar Disorder, Hx Depression Traumatic Medical History: Reports: Hx Traumatic Brain Injury - Immunizations Hx Diphtheria, Pertussis, Tetanus Vaccination: No Review of Systems - Review of Systems Constitutional: No symptoms reported EENT: No symptoms reported Cardiovascular: No symptoms reported Respiratory: No symptoms reported Gastrointestinal: No symptoms reported Genitourinary: No symptoms reported Female Genitourinary: No symptoms reported Musculoskeletal: See HPI Skin: See HPI Hematologic/Lymphatic: No symptoms reported Neurological/Psychological: No symptoms reported Physical Exam - Vital signs Vitals: Temp Pulse Resp BP Pulse Ox 97.4 F 77 18 166/81 H 95 10/03/19 11:51 10/03/19 11:51 10/03/19 11:51 10/03/19 11:51 10/03/19 11:51 - Notes Notes: PHYSICAL EXAMINATION: GENERAL: Well-appearing, well-nourished and in no acute distress. HEAD: Atraumatic, normocephalic. EYES: Pupils equal round and reactive to light, extraocular movements intact, conjunctiva are normal. ENT: Nares patent, oropharynx clear without exudates. Moist mucous membranes. NECK: Normal range of motion, supple without lymphadenopathy LUNGS: Breath sounds clear to auscultation bilaterally and equal. No wheezes ra les or rhonchi. HEART: Regular rate and rhythm without murmurs ABDOMEN: Soft, nontender, nondistended abdomen. No guarding, no rebound. No masses appreciated. Female : deferred Musculoskeletal: Normal range of motion, no pitting or edema. No cyanosis. NEUROLOGICAL: Cranial nerves grossly intact. Normal speech, normal gait. Normal sensory, motor exams PSYCH: Normal mood, normal affect. SKIN: Small abrasion noted to posterior scalp over the occipital area, no closure indicated. Course - Re-evaluation Re-evalutation: Laboratory 10/03/19 10/03/19 10/03/19 12:16 12:16 12:16 WBC 6.6 RBC 4.05 Hgb 13.0 Hct 38.1 MCV 94 MCH 32.0 MCHC 34.0 RDW 13.4 Plt Count 269 Lymph % (Auto) 32.5 Grand % (Auto) 4.1 Eos % (Auto) 1.5 Baso % (Auto) 0.8 Absolute Neuts (auto) 4.0 Absolute Lymphs (auto) 2.1 Absolute Monos (auto) 0.3 Absolute Eos (auto) 0.1 Absolute Basos (auto) 0.1 Seg Neutrophils % 61.1 Sodium 136.2 L Potassium 3.5 L Chloride 98 Carbon Dioxide 28 Anion Gap 10 BUN 19 Creatinine 0.98 Est GFR ( Amer) > 60 Est GFR (MDRD) Non-Af 57 L Glucose 273 H Calcium 9.7 Total Bilirubin 0.4 Direct Bilirubin 0.1 Neonat Total Bilirubin Not Reportable Neonat Direct Bilirubin Not Reportable Neonat Indirect Bili Not Reportable AST 24 ALT 18 Alkaline Phosphatase 108 Troponin I < 0.012 Total Protein 7.8 Albumin 4.4 Serum Alcohol < 10 Chest X-Ray 10/03/19 11:59 IMPRESSION: NO ACUTE DISEASE. Head CT 10/03/19 11:59 IMPRESSION: No significant interval change. Scalp hematoma right parietal region. EVIDENCE OF ACUTE STROKE: NO. - Vital Signs Vital signs: Temp Pulse Resp BP Pulse Ox 97.4 F 77 30 H 136/86 H 99 10/03/19 11:51 10/03/19 11:51 10/03/19 13:01 10/03/19 13:01 10/03/19 13:01 - Laboratory Result Diagrams: 10/03/19 12:16 10/03/19 12:16 Laboratory results interpreted by me: 10/03/19 12:16 Sodium 136.2 L Potassium 3.5 L Est GFR (MDRD) Non-Af 57 L Glucose 273 H Discharge - Discharge Clinical Impression: Scalp abrasion Qualifiers: Encounter type: initial encounter Qualified Code(s): S00.01XA - Abrasion of scalp, initial encounter Fall with injury Qualifiers: Encounter type: initial encounter Qualified Code(s): W19.XXXA - Unspecified fall, initial encounter Condition: Stable Disposition: HOME, SELF-CARE Additional Instructions: Your work-up in the emergency department today was unremarkable. The contusion/abrasion to the back of her head does not require closure. Please follow-up with your primary care provider, call them Friday to schedule an appointment. Referrals: ANJALI CUELLAR PA-C [Primary Care Provider] - Follow up as needed
[2019-10-03 13:59] VITALS: BP 136/86
--- NOTE | 2019-10-03 23:25 | EKG REPORT ---
SEVERITY:- BORDERLINE ECG - SINUS RHYTHM BORDERLINE T WAVE ABNORMALITIES : Confirmed by: John Garcia 03-Oct-2019 23:24:32
== END 2019-10-03 13:59 | disposition home or self-care (01) ==
LOC: ER 11:39
DX: S00.01XA Abrasion of scalp, initial encounter (principal); S00.03XA Contusion of scalp, initial encounter; W19.XXXA Unspecified fall, initial encounter; Y93.89 Activity, other specified; Y92.512 Supermarket, store or market as the place of occurrence of the external cause; R51 Headache; R42 Dizziness and giddiness; F17.200 Nicotine dependence, unspecified, uncomplicated; I10 Essential (primary) hypertension; E11.9 Type 2 diabetes mellitus without complications; Z88.8 Allergy status to other drugs, medicaments and biological substances; Z88.0 Allergy status to penicillin
CPT/HCPCS: 36415; 70450; 71045; 80053; 80307; 84484; 85025; 90471; 90715; 93005; 93010; 99284

== ENCOUNTER 2019-10-05 14:11 | Emergency (ER) | payer MEDICARE ==
--- NOTE | 2019-10-05 14:21 | ER Document Report ---
ED Medical Screen (RME) - General Chief Complaint: Buttock Injury Stated Complaint: BUTTOCKS PAIN Time Seen by Provider: 10/05/19 14:17 Primary Care Provider: ANJALI CUELLAR PA-C [Primary Care Provider] - Follow up as needed TRAVEL OUTSIDE OF THE [place].S. IN LAST 30 DAYS: No - HPI Notes: 10/05/19 14:45 64-year-old female to the emergency department with complaints of low back and b uttocks pain after she sustained a fall several days ago. She states that she was in [employer] when she fell back onto her back and struck her head. She states that she was actually seen the same day because when she struck her head she also had some bleeding from the head. She states she was seen here but at the time was not experiencing back or sacral pain. She states that she has not been taking any medicine for her pain because she was not prescribed any. Denies any bladder or bowel incontinence, saddle paresthesia, radiculopathy, difficulty ambulating, fevers, IV drug abuse, or any other complaints. I performed a brief medical screening exam on this patient and determined that this patient needs further evaluation and management from [place] side ER provider. I have ordered labs and imaging studies as indicated to aid in expediting the patient's care. - Related Data Allergies/Adverse Reactions: acetaminophen [From Coricidin] Allergy (Mild, Verified 10/05/19 14:18) RASH chlorpheniramine [From Coricidin] Allergy (Mild, Verified 10/05/19 14:18) RASH Penicillins Allergy (Mild, Verified 10/05/19 14:18) Hives phenylpropanolamine [From Coricidin] Allergy (Mild, Verified 10/05/19 14:18) RASH Past Medical History - Past Medical History Cardiac Medical History: Reports: Hx Hypercholesterolemia, Hx Hypertension Denies: Hx Coronary Artery Disease, Hx Heart Attack Pulmonary Medical History: Denies: Hx Asthma, Hx Bronchitis, Hx COPD, Hx Pneumonia Neurological Medical History: Reports: Hx Seizures - D/T OVERDOSE OF SOME MEDICATION. Denies: Hx Cerebrovascular Accident Endocrine Medical History: Reports: Hx Diabetes Mellitus Type 2 Musculoskeltal Medical History: Denies Hx Arthritis Psychiatric Medical History: Reports: Hx Bipolar Disorder, Hx Depression Traumatic Medical History: Reports: Hx Traumatic Brain Injury - Immunizations Hx Diphtheria, Pertussis, Tetanus Vaccination: No Doctor's Discharge - Discharge Referrals: ANJALI CUELLAR PA-C [Primary Care Provider] - Follow up as needed
[2019-10-05 15:08] VITALS: BP 139/70
--- NOTE | 2019-10-05 15:08 | RADIOLOGY REPORT (SQ) ---
EXAM DESCRIPTION: SACRUM AND COCCYX COMPLETED DATE/TIME: 10/05/2019 2:58 pm REASON FOR STUDY: fall, sacral pain COMPARISON: None. NUMBER OF VIEWS: Three views. TECHNIQUE: AP, lateral, and tilt views of the sacrum and coccyx. LIMITATIONS: None. FINDINGS: MINERALIZATION: Normal. BONES: No acute fracture or dislocation. SOFT TISSUES: No subcutaneous emphysema, soft tissue swelling or radiopaque foreign body. OTHER: No other finding. IMPRESSION: No acute osseous abnormality of the sacrum and coccyx. TECHNICAL DOCUMENTATION: JOB ID: [id number] [employer]- All Rights Reserved Reading location - IP/workstation name: [email or web address]
--- NOTE | 2019-10-05 15:11 | RADIOLOGY REPORT (SQ) ---
EXAM DESCRIPTION: L SPINE WHOLE COMPLETED DATE/TIME: 10/05/2019 2:58 pm REASON FOR STUDY: low back pain, fall COMPARISON: None. NUMBER OF VIEWS: Five views including obliques. TECHNIQUE: AP, lateral, oblique, and sacral radiographic images acquired of the lumbar spine. LIMITATIONS: None. FINDINGS: MINERALIZATION: Normal. SEGMENTATION: There are 5 lumbar-type vertebral bodies. There is no transitional anatomy at the lumb osacral junction. ALIGNMENT: Grade 1 anterolisthesis of L5 on S1. VERTEBRAE: The lumbar vertebral body heights are preserved. There is no fracture. DISCS: The T10-T11, T11-T12, and L4-5 intervertebral disc spaces are narrowed; at T11-T12 and L5-S1 t here is evidence of vacuum disc phenomena. POSTERIOR ELEMENTS: Pars interarticularis defects at L5-S1 with grade 1 anterolisthesis. HARDWARE: None in the spine. PARASPINAL SOFT TISSUES: Vascular calcifications. PELVIS: Intact. OTHER: No other finding. 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 TECHNICAL DOCUMENTATION: JOB ID: [id number] [employer]- All Rights Reserved Reading location - IP/workstation name: [email or web address]
--- NOTE | 2019-10-05 16:23 | ER Document Report ---
HPI - HPI Time Seen by Provider: 10/05/19 14:17 Pain Level: 3 Context: Patient is a 64-year-old female who presents to the emergency department with a chief complaint of low back pain. Patient reports on Friday, 2 days ago, she was at [facility] when she went to step backwards causing her to fall. Patient reports she did strike the back of her head and fell onto her butt. Patient reports she was seen in the emergency department for her head injury and at that time was not having back pain. Patient reports over the past 2 days she has developed lower back pain as well as tailbone pain. Patient reports she has been ambulating appropriately and denies radiation of her discomfort down her legs. Patient denies numbness or tingling down her lower extremities. Patient denies loss of bowel or bladder. - REPRODUCTIVE Reproductive: DENIES: : Past Medical History - General Information source: Patient - Social History Smoking Status: Never Smoker Chew tobacco use (# tins/day): No Frequency of alcohol use: None Drug Abuse: None Lives with: Family Family History: Reviewed & Not Pertinent Patient has suicidal ideation: No Patient has homicidal ideation: No - Past Medical History Cardiac Medical History: Reports: Hx Hypercholesterolemia, Hx Hypertension Denies: Hx Coronary Artery Disease, Hx Heart Attack Pulmonary Medical History: Reports: None Denies: Hx Asthma, Hx Bronchitis, Hx COPD, Hx Pneumonia EENT Medical History: Reports: None Neurological Medical History: Reports: Hx Seizures - D/T OVERDOSE OF SOME MEDICATION. Denies: Hx Cerebrovascular Accident Endocrine Medical History: Reports: Hx Diabetes Mellitus Type 2 Renal/ Medical History: Reports: None Malignancy Medical History: Reports: None GI Medical History: Reports: None Musculoskeletal Medical History: Reports None, Denies Hx Arthritis Skin Medical History: Reports None Psychiatric Medical History: Reports: Hx Bipolar Disorder, Hx Depression Traumatic Medical History: Reports: Hx Traumatic Brain Injury Infectious Medical History: Reports: None - Immunizations Hx Diphtheria, Pertussis, Tetanus Vaccination: No Vertical Provider Document - CONSTITUTIONAL Agree With Documented VS: Yes Exam Limitations: No Limitations General Appearance: No Apparent Distress - INFECTION CONTROL TRAVEL OUTSIDE OF THE [place] IN LAST 30 DAYS: No - HEENT HEENT: Atraumatic, Normal ENT Exam, Normocephalic, PERRLA - NECK Neck: Normal Inspection - RESPIRATORY Respiratory: Breath Sounds Normal, No Respiratory Distress - CARDIOVASCULAR Cardiovascular: Regular Rate, Regular Rhythm - GI/ABDOMEN Gastrointestinal: Abdomen Soft, Abdomen Non-Tender, Normal Bowel Sounds - BACK Notes: Patient does not have any CVA tenderness. Patient does have a minimal lumbar midline tenderness upon palpation. There is no cervical or thoracic midline tenderness. Patient does have bilateral paraspinal lumbar discomfort with palpation. There is no ecchymosis, abrasions, edema noted to the lower back or upper buttocks. No tenderness to the coccyx. - MUSCULOSKELETAL/EXTREMETIES Musculoskeletal/Extremeties: FROM, Non-Tender - NEURO Level of Consciousness: Awake, Alert, Appropriate - DERM Integumentary: Warm, Dry, No Rash Course - Re-evaluation Re-evalutation: 10/05/19 16:20 Did discuss the results of the lumbar spine x-ray with the patient and friend. I did inform them that there is no acute fracture. I did discuss the results as well with Dr. Chowdhury my supervising physician who did read the radiology study did not find any acute abnormality. 10/05/19 16:44 Patient did have a CT scan of the head on Friday after the fall. This was negative. 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 Sacrum and Coccyx X-Ray 10/05/19 14:20 IMPRESSION: No acute osseous abnormality of the sacrum and coccyx. Discharge - Discharge Clinical Impression: Buttock pain Fall Qualifiers: Encounter type: subsequent encounter Qualified Code(s): W19.XXXD - Unspecified fall, subsequent encounter Low back pain Qualifiers: Chronicity: acute Back pain laterality: midline Sciatica presence: without sciatica Qualified Code(s): M54.5 - Low back pain Condition: Stable Disposition: HOME, SELF-CARE Additional Instructions: Today you are seen in the emergency department for low back pain. You reported this is from a fall that happened 2 days ago. You were seen in the emergency department 2 days ago and had a head CT which was negative. At that time he reported not having back pain but has since developed this. Your x-ray was negative for any acute fracture. Your symptoms are most likely due to a muscular strain. Please use ice packs to the area. Please monitor for worsening signs or symptoms such as numbness or tingling down her lower extremities, loss of bowel or bladder or worsening pain. Low Back Pain Three out of every four people will have an episode of disabling back pain during their lifetime. Most commonly the pain is due to straining of the muscles and ligaments in the low back. Usual treatment includes: (1) Rest on a firm surface. Avoid lying on your stomach. (2) Ice pack the painful area. After a few days, gentle heat may be used intermittently to relax the area, or ice packs can be continued. (3) Medication may be needed -- muscle relaxers and antiinflammatory medicines are commonly used. (4) As the back improves, exercises are prescribed to strengthen the back and abdominal muscles. Your doctor will advise you on the proper care for your back at each stage in your recovery. You may be better in a few days -- or healing may take several weeks. If new symptoms of a "herniated disc" (radiation of pain, numbness, or tingling down the back of the leg or weakness in the leg) occur, you should be re-examined. Further testing may be necessary. Coccyx Injury Your painful tailbone is due to an injury to the `coccyx', the bone at the end of the spine. While quite painful, this injury isn't serious. In fact, it's really not important whether the bone is fractured or not -- the treatment is the same. In general, this injury is treated by cold-packing the area and resting for a few days. Once you are active again, you may find that a `donut' seat cushion (often used after delivering a baby) helps you sit more comfortably. Avoid constipation by getting lots of fiber. Expect about three or four weeks before you are painfree. You should call your doctor if the pain becomes severe, or if you fail to improve as expected. Referrals: ANJALI CUELLAR PA-C [Primary Care Provider] - Follow up as needed
== END 2019-10-05 16:20 | disposition home or self-care (01) ==
LOC: ER 14:11
DX: M54.5 Low back pain (principal); M79.10 Myalgia, unspecified site; W19.XXXD Unspecified fall, subsequent encounter; E78.00 Pure hypercholesterolemia, unspecified; I10 Essential (primary) hypertension; E11.9 Type 2 diabetes mellitus without complications; Z87.820 Personal history of traumatic brain injury
CPT/HCPCS: 72110; 72220; 99283

== ENCOUNTER 2020-06-23 11:46 | Inpatient (IN) | payer MEDICARE ==
[2020-06-23] MEDS ORDERED: NORMAL SALINE 1000 ML 1,000 ML IV ONE ×2 (12:08→14:48)
--- NOTE | 2020-06-23 12:14 | ER Document Report ---
ED Medical Screen (RME) - General Chief Complaint: Altered Mental Status Stated Complaint: WEAKNESS Time Seen by Provider: 06/23/20 12:06 Primary Care Provider: ANJALI CUELLAR PA-C [Primary Care Provider] - Follow up as needed Mode of Arrival: Wheelchair Information source: Relative, Legal Guardian Notes: Patient is a 65-year-old female is brought to the emergency room by her sister who she lives with sent by her primary care provider. Evidently patient has had altered mental status since Friday. On Friday it appears that she decided to stop eating and drinking. The sister states who is her legal guardian that she has had severe confusion since that day as well and she is sleeping a lot. Patient has a history of ycq-xmtdotv-qcoyiptjg diabetes her primary care today stopped her metformin, glipizide, hydrochlorothiazide and losartan. The reason for this was renal functions. Patient has a past medical history also pertinent for a traumatic brain injury. She has several mental health issues as well. The sister is very concerned that she is dehydrated and she is not acting her baseline. Patient's vital signs on arrival showed blood pressure 113/70, heart rate of 60, saturation 98% on room air and a temp of 97.5. Physical examination: Patient is a well-nourished well-developed obese 65-year-old female who is in no apparent distress on examination today although displays a very flat and blunted affect. She is mildly confused knows where in the year 1999 but not the exact date cannot tell me the president. Sister states that this is also part of her traumatic brain injury. . Cardiac: Patient currently displays a rate of 60 bpm with no murmurs auscultated. Lungs: Bilateral breath sounds decreased throughout no rhonchi rales or wheeze h eard. Abdomen: Bowel sounds are present all 4 quads but very decreased. Nontender to palpate. Neuro: Neurologic examination currently shows patient to be moderately confused whether this is a total baseline or new onset unable to determine. Symptoms have been going on for at least a week. Rest of her neuro exam shows motor function to be normal. I have greeted and performed a rapid initial assessment of this patient. A comprehensive ED assessment and evaluation of the patient, analysis of test results and completion of the medical decision making process will be conducted by additional ED providers. Dictation of this chart was performed using voice recognition software; therefore, there may be some unintended grammatical errors. Patient's primary care provider sent his/her office note from today. Review of systems show patient to have fatigue, lethargy, weakness but no fever or chills. Vital signs there showed a blood pressure 96/64 with a heart rate of 67. Her i-STAT done in the office did show a glucose of 185 creatinine 1.7 and a BUN of 27. Her urine showed a trace of leukocyte esterase. TRAVEL OUTSIDE OF THE [place] IN LAST 30 DAYS: No - Related Data Allergies/Adverse Reactions: acetaminophen [From Coricidin] Allergy (Mild, Verified 06/23/20 12:01) RASH chlorpheniramine [From Coricidin] Allergy (Mild, Verified 06/23/20 12:01) RASH Penicillins Allergy (Mild, Verified 06/23/20 12:01) Hives phenylpropanolamine [From Coricidin] Allergy (Mild, Verified 06/23/20 12:01) RASH Home Medications: HCPOA at bedside has list Past Medical History - Social History Chew tobacco use (# tins/day): No Frequency of alcohol use: None Drug Abuse: None - Past Medical History Cardiac Medical History: Reports: Hx Hypercholesterolemia, Hx Hypertension Denies: Hx Coronary Artery Disease, Hx Heart Attack Pulmonary Medical History: Denies: Hx Asthma, Hx Bronchitis, Hx COPD, Hx Pneumonia Neurological Medical History: Reports: Hx Seizures - D/T OVERDOSE OF SOME MEDICATION. Denies: Hx Cerebrovascular Accident Endocrine Medical History: Reports: Hx Diabetes Mellitus Type 2 Musculoskeltal Medical History: Denies Hx Arthritis Psychiatric Medical History: Reports: Hx Bipolar Disorder, Hx Depression Traumatic Medical History: Reports: Hx Traumatic Brain Injury - Immunizations Hx Diphtheria, Pertussis, Tetanus Vaccination: No Physical Exam - Vital signs Vitals: Temp Pulse Resp BP Pulse Ox 97.5 F 60 14 113/70 98 06/23/20 11:52 06/23/20 11:52 06/23/20 11:52 06/23/20 11:52 06/23/20 11:52 Course - Vital Signs Vital signs: Temp Pulse Resp BP Pulse Ox 97.5 F 60 14 113/70 98 06/23/20 11:52 06/23/20 11:52 06/23/20 11:52 06/23/20 11:52 06/23/20 11:52 Doctor's Discharge - Discharge Referrals: ANJALI CUELLAR PA-C [Primary Care Provider] - Follow up as needed
--- NOTE | 2020-06-23 12:56 | RADIOLOGY REPORT (SQ) ---
EXAM DESCRIPTION: CT HEAD WITHOUT IMAGES COMPLETED DATE/TIME: 06/23/2020 12:35 pm REASON FOR STUDY: Altered level of consciousness COMPARISON: None. TECHNIQUE: Axial images acquired through the brain without intravenous contrast. Images reviewed wi th bone, brain and subdural windows. 10/03/2019 Images stored on PACS. All CT scanners at this facility use dose modulation, iterative reconstruction, and/or weight based d osing when appropriate to reduce radiation dose to as low as reasonably achievable (ALARA). [facility]: Dose Right [facility]: CareDose [facility]: Dose Right [facility]: Teradose 4D [facility]: Songfor RADIATION DOSE: CT Rad equipment meets quality standard of care and radiation dose reduction techniq ues were employed. CTDIvol: 53.2 mGy. DLP: 991 mGy-cm. mGy. LIMITATIONS: None. FINDINGS: VENTRICLES: Prominent. CEREBRUM: Stable frontal lobe encephalomalacia. No mass, hemorrhage or mass effect. CEREBELLUM: No masses. No hemorrhage. No alteration of density. No evidence for acute infarction. EXTRAAXIAL SPACES: Mild age-related involutional change. No fluid collections. No masses. ORBITS AND GLOBE: No intra- or extraconal masses. Normal contour of globe without masses. CALVARIUM: No fracture. PARANASAL SINUSES: No fluid or mucosal thickening. SOFT TISSUES: No mass or hematoma. OTHER: No other significant finding. IMPRESSION: Stable frontal lobe encephalomalacia. Mild small vessel disease. No acute intracranial event. EVIDENCE OF ACUTE STROKE: NO. TECHNICAL DOCUMENTATION: JOB ID: [id number] Quality ID # [id number]: Final reports with documentation of one or more dose reduction techniques (e.g., Au tomated exposure control, adjustment of the mA and/or kV according to patient size, use of iterative reconstruction technique) 2010 [employer]- All Rights Reserved Reading location - IP/workstation name: [email or web address]
--- NOTE | 2020-06-23 12:56 | RADIOLOGY REPORT (SQ) ---
EXAM DESCRIPTION: CHEST SINGLE VIEW IMAGES COMPLETED DATE/TIME: 06/23/2020 12:38 pm REASON FOR STUDY: cough COMPARISON: 10/03/2019 EXAM PARAMETERS: NUMBER OF VIEWS: One view. TECHNIQUE: Single frontal radiographic view of the chest acquired. RADIATION DOSE: NA LIMITATIONS: None. FINDINGS: LUNGS AND PLEURA: No opacities, masses or pneumothorax. No pleural effusion. MEDIASTINUM AND HILAR STRUCTURES: No masses. Contour normal. HEART AND VASCULAR STRUCTURES: Heart normal in size. Normal vasculature. BONES: No acute findings. HARDWARE: None in the chest. OTHER: No other significant finding. IMPRESSION: NO ACUTE RADIOGRAPHIC FINDING IN THE CHEST. TECHNICAL DOCUMENTATION: JOB ID: [id number] 2010 [employer]- All Rights Reserved Reading location - IP/workstation name: [email or web address]
[2020-06-23 14:08] LABS: ABSOLUTE LYMPHOCYTES (AUTO) 1.6 10^3/uL (0.5-4.7); ABSOLUTE MONOCYTES (AUTO) 0.4 10^3/uL (0.1-1.4); ABSOLUTE NEUT (AUTO) 2.6 10^3/uL (1.7-8.2); BASOPHILS % (AUTO) 0.4 % (0-2); EOSINOPHILS % (AUTO) 0.4 % (0-6); HEMATOCRIT 38.4 % (36.0-47.0); HEMOGLOBIN 13.3 g/dL (12.0-15.5); LYMPHOCYTES % (AUTO) 33.8 % (13-45); MEAN CORPUSCULAR HGB CONC 34.7 g/dL (32.0-36.0); MEAN CORPUSCULAR VOLUME 92 fl (80-97); MONOCYTES % (AUTO) 9.2 % (3-13); PLATELET COUNT 272 10^3/uL (150-450); RED BLOOD COUNT 4.15 10^6/uL (3.72-5.28); RED CELL DISTRIBUTION WIDTH 13.7 % (11.5-14.0); SEGMENTED NEUTROPHILS % (AUTO) 56.2 % (42-78); TOTAL CELLS COUNTED % (AUTO) 100 %; WHITE BLOOD COUNT 4.7 10^3/uL (4.0-10.5)
[2020-06-23 14:32] LABS: ALKALINE PHOSPHATASE 91 U/L (38-126); ANION GAP 9 (5-19); ASPARTATE AMINO TRANSFERASE 38 U/L (14-36); BILIRUBIN,DIRECT 0.1 mg/dL (0.0-0.4); BILIRUBIN,TOTAL 0.6 mg/dL (0.2-1.3); BLOOD UREA NITROGEN 33 mg/dL (7-20); CALCIUM 9.5 mg/dL (8.4-10.2); CARBON DIOXIDE 24 mmol/L (22-30); CHLORIDE 92 mmol/L (98-107); GLUCOSE 120 mg/dL (75-110); POTASSIUM 4.5 mmol/L (3.6-5.0); TOTAL PROTEIN 8.9 g/dL (6.3-8.2)
[2020-06-23 15:03] LABS: APPEARANCE,URINE CLEAR; BILIRUBIN,URINE NEGATIVE (NEGATIVE); COLOR,URINE STRAW; GLUCOSE, URINE NEGATIVE (NEGATIVE); KETONES,URINE NEGATIVE (NEGATIVE); LEUKOCYTE ESTERASE,URINE NEGATIVE (NEGATIVE); NITRITE,URINE NEGATIVE (NEGATIVE); PROTEIN,URINE NEGATIVE (NEGATIVE); URINE SPECIFIC GRAVITY 1.005; UROBILINOGEN,URINE NEGATIVE mg/dL (<2.0)
--- NOTE | 2020-06-23 15:05 | ER Document Report ---
ED General - General Chief Complaint: Altered Mental Status Stated Complaint: WEAKNESS Time Seen by Provider: 06/23/20 12:06 Mode of Arrival: Wheelchair Notes: This is a nuha 65-year-old lady brought in by her sister for a week of confusion acting strange and altered mental status. This is all per her family member. She cannot say what is going on but just feels weak. She is on a diuretic. She has had no trauma or fever. TRAVEL OUTSIDE OF THE [place] IN LAST 30 DAYS: No - Related Data Allergies/Adverse Reactions: acetaminophen [From Coricidin] Allergy (Mild, Verified 06/23/20 12:01) RASH chlorpheniramine [From Coricidin] Allergy (Mild, Verified 06/23/20 12:01) RASH Penicillins Allergy (Mild, Verified 06/23/20 12:01) Hives phenylpropanolamine [From Coricidin] Allergy (Mild, Verified 06/23/20 12:01) RASH Home Medications: HCPOA at bedside has list Past Medical History - General Information source: Relative, Legal Guardian - Social History Smoking Status: Current Every Day Smoker Chew tobacco use (# tins/day): No Frequency of alcohol use: None Drug Abuse: None Family History: Reviewed & Not Pertinent - Past Medical History Cardiac Medical History: Reports: Hx Hypercholesterolemia, Hx Hypertension Denies: Hx Coronary Artery Disease, Hx Heart Attack Pulmonary Medical History: Denies: Hx Asthma, Hx Bronchitis, Hx COPD, Hx Pneumonia Neurological Medical History: Reports: Hx Seizures - D/T OVERDOSE OF SOME MEDICATION. Denies: Hx Cerebrovascular Accident Endocrine Medical History: Reports: Hx Diabetes Mellitus Type 2 Musculoskeletal Medical History: Denies Hx Arthritis Psychiatric Medical History: Reports: Hx Bipolar Disorder, Hx Depression Traumatic Medical History: Reports: Hx Traumatic Brain Injury - Immunizations Hx Diphtheria, Pertussis, Tetanus Vaccination: No Review of Systems - Review of Systems Notes: REVIEW OF SYSTEMS Confusion/dementia PHYSICAL EXAMINATION General: No acute distress, well-nourished Head: Atraumatic, normocephalic ENT: Mouth normal, oropharynx moist, no exudates or tonsillar enlargement Eyes: Conjunctiva normal, pupils equal, lids normal Neck: No JVD, supple, no guarding CVS: Normal rate, regular rhythm, no murmurs Resp: No resp distress, equal and normal breath sounds bilaterally GI: Nondistended, soft, no tenderness to palpation, no rebound or guarding Ext: No deformities, no edema, normal range of motion in upper and lower ext Back: No CVA or midline TTP Skin: No rash, warm Lymphatic: No lymphadeopathy noted Neuro: Awake, alert. Does not know the answers to simple questions but knows her name. Mild tremor at baseline without myoclonus, symmetric. Physical Exam - Vital signs Vitals: Temp Pulse Resp BP Pulse Ox 97.5 F 60 14 113/70 98 06/23/20 11:52 06/23/20 11:52 06/23/20 11:52 06/23/20 11:52 06/23/20 11:52 Course - Re-evaluation Re-evalutation: 06/23/20 17:17 Patient presents with altered mental status for a week in the setting of diuretic use and apparent clinical dehydration Differential includes AARTI uremia hyponatremia hyper glycemia or hypoglycemia less likely head trauma Patient's labs are significant for doubling of her creatinine with a decrease in her sodium. Her urine is not infected. She was given IV fluid and will be admitted to the hospitalist. Discussed with Dr. Long I have discussed with the patient there likely diagnosis, aftercare plan, follow-up plans and my usual and customary return precautions. They verbalized understanding of this. - Vital Signs Vital signs: Temp Pulse Resp BP Pulse Ox 97.5 F 60 17 155/82 H 100 06/23/20 11:52 06/23/20 14:01 06/23/20 15:20 06/23/20 15:20 06/23/20 14:01 - Laboratory Result Diagrams: 06/23/20 13:34 06/23/20 13:34 Laboratory results interpreted by me: 06/23/20 06/23/20 13:34 14:40 Sodium 125.0 L Chloride 92 L BUN 33 H Creatinine 2.07 H Est GFR ( Amer) 29 L Est GFR (MDRD) Non-Af 24 L Glucose 120 H AST 38 H Total Protein 8.9 H Urine Ascorbic Acid 20 H Discharge - Discharge Clinical Impression: Acute kidney injury, Hyponatremia Condition: Fair Disposition: ADMITTED INPATIENT Admitting Provider: Zack (Hospitalist) Unit Admitted: Medical Floor
[2020-06-23] MEDS ORDERED: NORMAL SALINE 1000 ML 1,000 ML IV PRN (16:47)
[2020-06-23] MEDS ORDERED: ALBUTEROL SULFATE 0.083% NEB 2.5 MG/3 ML AMPUL NEB PRN (16:47)
[2020-06-23] MEDS ORDERED: HALOPERIDOL LACTATE INJ 5 MG/1 ML VIAL IM ONE (16:50)
[2020-06-23] MEDS ORDERED: MAG HYDROX/AL HYDROX/SIMETH SUSP 30 ML UDCUP PO PRN (16:55)
[2020-06-23] MEDS ORDERED: ONDANSETRON HCL INJ/PF 4 MG/2 ML SDV IV PRN (16:55)
[2020-06-23] MEDS ORDERED: TRAMADOL HCL 50 MG TABLET PO PRN (16:56)
[2020-06-23] MEDS ORDERED: DEXTROSE 50%-WATER 25 GM/50 ML DISP.SYRIN IV PRN ×2 (17:21)
[2020-06-23] MEDS ORDERED: GLUCAGON,HUMAN RECOMB 1 MG INJ IM PRN (17:21)
[2020-06-23] MEDS ORDERED: DEXTROSE 40% GEL 15 GM TUBE PO PRN ×2 (17:21)
[2020-06-23] MEDS ORDERED: HALOPERIDOL LACTATE INJ 5 MG/1 ML VIAL IM PRN (17:22)
--- NOTE | 2020-06-23 17:36 | PDOC H&P ---
History of Present Illness Admission Date/PCP: 06/23/20 15:39 ANJALI CUELLAR PA-C Patient complains of: Confusion History of Present Illness: MICHELLE PIRES is a 65 year old female with a history of bipolar disorder, diabetes mellitus type 2, hypertension, presents to the hospital for evaluation of altered mental status which has become more more notable over the past few days. History mostly obtained from patient's sister and power of superintendent board mill Akila Angelo with some history taken from patient. Akila reports that patient has been getting more more confused. She states that she took her to see the primary care provider today who did some blood work as stated that she was dehydrated and subsequently referred to the hospital. Patient denies any shortness of breath, chest pain fever or chills. She denies polyuria or dysuria. Patient is not very cooperative with interview. She is seen ripping off her press worker helper stating that she does not needed. Past Medical History Cardiac Medical History: Reports: Hyperlipidema, Hypertension Denies: Coronary Artery Disease, Myocardial Infarction Pulmonary Medical History: Denies: Asthma, Bronchitis, Chronic Obstructive Pulmonary Disease (COPD), Pneumonia Neurological Medical History: Reports: Seizures - D/T OVERDOSE OF SOME MEDICATION Endocrine Medical History: Reports: Diabetes Mellitus Type 2 Musculoskeltal Medical History: Denies: Arthritis Psychiatric Medical History: Reports: Bipolar Disorder, Depression Traumatic Medical History: Reports: Traumatic Brain Injury Hematology: Denies: Anemia Past Surgical History Past Surgical History: Reports: Other - Unable to obtain from patient Social History Information Source: Relative, POA - Power of Lion [employer]amer Smoking Status: Current Every Day Smoker Frequency of Alcohol Use: None Hx Recreational Drug Use: No Family History Family History: DM Parental Family History Reviewed: Yes Children Family History Reviewed: Unknown Sibling(s) Family History Reviewed.: Yes Medication/Allergy Home Medications: Amlodipine Besylate 10 mg PO DAILY 01/23/18 Benztropine Mesylate 1 mg PO DAILY 01/23/18 Glipizide 5 mg PO ASDIR 01/23/18 Hydrochlorothiazide 12.5 mg PO DAILY 01/23/18 Pravastatin Sodium 40 mg PO DAILY 01/23/18 Propranolol HCl [Inderal 10 mg Tablet] 10 mg PO DAILY 01/23/18 Quetiapine Fumarate [Seroquel] 2 tab PO QHS 01/23/18 Allergies/Adverse Reactions: acetaminophen [From Coricidin] Allergy (Mild, Verified 06/23/20 12:01) RASH chlorpheniramine [From Coricidin] Allergy (Mild, Verified 06/23/20 12:01) RASH Penicillins Allergy (Mild, Verified 06/23/20 12:01) Hives phenylpropanolamine [From Coricidin] Allergy (Mild, Verified 06/23/20 12:01) RASH Review of Systems Constitutional: PRESENT: fatigue. ABSENT: chills, fever(s) Eyes: ABSENT: visual disturbances Ears: ABSENT: hearing changes Nose, Mouth, and Throat: ABSENT: headache(s) Cardiovascular: ABSENT: chest pain Respiratory: ABSENT: cough, dyspnea Gastrointestinal: ABSENT: abdominal pain, nausea, vomiting Genitourinary: ABSENT: difficulty urinating, dysuria Musculoskeletal: ABSENT: back pain Integumentary: ABSENT: diaphoresis Neurological: PRESENT: confusion. ABSENT: dizziness Endocrine: ABSENT: polyuria Physical Exam Vital Signs: Temp Pulse Resp BP Pulse Ox 97.5 F 60 17 155/82 H 100 06/23/20 11:52 06/23/20 14:01 06/23/20 15:20 06/23/20 15:20 06/23/20 14:01 Intake & Output 06/22/20 06/23/20 06/24/20 06:59 06:59 06:59 Intake Total 1999 Balance 1999 Weight 81.193 kg General appearance: PRESENT: no acute distress, cooperative Head exam: PRESENT: atraumatic Eye exam: PRESENT: EOMI Neck exam: ABSENT: JVD Respiratory exam: PRESENT: clear to auscultation oscar, unlabored. ABSENT: tachypnea, wheezes Cardiovascular exam: PRESENT: RRR, +S1, +S2, systolic murmur. ABSENT: tachycardia GI/Abdominal exam: PRESENT: soft. ABSENT: distended, firm, guarding, rebound, rigid, tenderness Extremities exam: ABSENT: pedal edema Musculoskeletal exam: PRESENT: ambulatory, full ROM Neurological exam: PRESENT: alert, awake, oriented to person, oriented to place. ABSENT: oriented to time, oriented to situation, ataxia Psychiatric exam: PRESENT: agitated, anxious, unusual affect - Withdrawn. ABSENT: homicidal ideation, suicidal ideation Focused psych exam: PRESENT: restlessness. ABSENT: catatonic, delusional, flight of ideas, internal stimuli, pressured speech Skin exam: ABSENT: jaundice Results Laboratory Results: 06/23/20 13:34 06/23/20 13:34 06/23/20 06/23/20 06/23/20 13:34 13:34 14:40 WBC 4.7 RBC 4.15 Hgb 13.3 Hct 38.4 MCV 92 MCH 32.0 MCHC 34.7 RDW 13.7 Plt Count 272 Seg Neutrophils % 56.2 Sodium 125.0 L Potassium 4.5 Chloride 92 L Carbon Dioxide 24 Anion Gap 9 BUN 33 H Creatinine 2.07 H Est GFR ( Amer) 29 L Glucose 120 H Calcium 9.5 Total Bilirubin 0.6 AST 38 H Alkaline Phosphatase 91 Total Protein 8.9 H Albumin 5.0 Urine Color STRAW Urine Appearance CLEAR Urine pH 5.0 Ur Specific Duff 1.005 Urine Protein NEGATIVE Urine Glucose (UA) NEGATIVE Urine Ketones NEGATIVE Urine Blood NEGATIVE Urine Nitrite NEGATIVE Ur Leukocyte Esterase NEGATIVE Urine WBC (Auto) 2 Urine RBC (Auto) 0 06/23/20 13:34 Troponin I < 0.012 Impressions: Chest X-Ray 06/23/20 12:07 IMPRESSION: NO ACUTE RADIOGRAPHIC FINDING IN THE CHEST. Head CT 06/23/20 12:08 IMPRESSION: Stable frontal lobe encephalomalacia. Mild small vessel disease. No acute intracranial event. EVIDENCE OF ACUTE STROKE: NO. Assessment and Plan - Diagnosis (1) Hyponatremia Is this a current diagnosis for this admission?: Yes Plan: Patient sodium level is 125 today. Last comparable data is from end of last year which shows sodium of 136. I believe this is very likely due to dehydration and hypovolemic hyponatremia. Check serum osmolarity. Patient has received 2 L normal saline boluses in the ER. I will place patient on continuous normal saline infusion at 110 cc/h Monitor BMP closely. Will repeat at 8 PM. Goal correction of 6mEq/24hr. (2) Acute metabolic encephalopathy Is this a current diagnosis for this admission?: Yes Plan: Patient has a few factors that are likely contributing to her metabolic encephalopathy. This is likely due to acute delirium from dehydration superimposed on her known TBI with encephalomalacia. It could also be due to uncontrolled bipolar disorder possibly with some depression. As such I have asked psychiatry to evaluate. I doubt her AARTI is causing this as she is not uremic. Though she is hyponatremic, sodium level of 125 does not typically cause you neurological changes. Head CT is negative. Urinalysis shows no evidence of urinary tract infection. Check TSH. We will address these issues and monitor her response to therapy. (3) Acute kidney injury Is this a current diagnosis for this admission?: Yes Plan: Baseline creatinine is normal. Currently creatinine is 2. Likely secondary to dehydration. IV fluid hydration and repeat BMP. Avoid nephrotoxins. (4) Bipolar disorder Qualifiers: Active/Remission status: currently active Current bipolar episode type: depressed Current episode severity: moderate Qualified Code(s): F31.32 - Bipolar disorder, current episode depressed, moderate Is this a current diagnosis for this admission?: Yes Plan: Patient has history of bipolar and follows with Dr. Bañuelos at [facility]. Awaiting medical reconciliation to resume her psych meds. She is not demonstrating some behaviors to give me concern for uncontrolled bip olar including restlessness, withdrawn affect, aggressive behavior demonstrated in the ER as I was notified that she was kicking staff. She denies HI/SI. Psychiatric consulted. Antipsychotics will be used to control patient's behaviors. (5) Diabetes mellitus type 2 in obese Is this a current diagnosis for this admission?: Yes Plan: Takes metformin and glipizide at home. We will put on a sliding scale and resume patient's meds once med reconciliation is done. (6) Tobacco dependence Is this a current diagnosis for this admission?: Yes Plan: Nicotine replacement therapy (7) Encephalomalacia Is this a current diagnosis for this admission?: Yes Plan: Involving the right frontal lobe. Sister reports it is secondary to TBI from years ago which left her with anosmia. - Time Time Spent with patient: 35 or more minutes Anticipated Discharge Disposition: Home, Self Care Anticipated Discharge Timeframe: within 48 hours
[2020-06-23] MEDS: NICOTINE 14 MG/24 HR PATCH.TD24 TD SCH (17:42)
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
[2020-06-23] MEDS: LOSARTAN POTASSIUM 50 MG TABLET PO SCH (20:26)
[2020-06-23] MEDS: BUSPIRONE HCL 10 MG TABLET PO SCH (20:26)
[2020-06-23] MEDS: PROPRANOLOL HCL 10 MG TABLET PO SCH (20:33)
[2020-06-23] MEDS: INSULIN LISPRO 100 UNIT/ML 3 ML VIAL SUBCUT SCH (22:29)
[2020-06-23] MEDS: HEPARIN SOD (PORCINE) 5,000 UNIT/ML 1 ML VIAL SUBCUT SCH (22:30)
[2020-06-23] MEDS: DIVALPROEX SODIUM 250 MG TAB.SR.24H PO SCH (22:34)
[2020-06-23 23:05] LABS: ANION GAP 8 (5-19); BLOOD UREA NITROGEN 28 mg/dL (7-20); CARBON DIOXIDE 21 mmol/L (22-30); CHLORIDE 101 mmol/L (98-107); GLUCOSE 101 mg/dL (75-110); POTASSIUM 3.9 mmol/L (3.6-5.0)
--- NOTE | 2020-06-23 23:10 | EKG REPORT ---
SEVERITY:- NORMAL ECG - SINUS RHYTHM : Confirmed by: Meeta Huntley MD 23-Jun-2020 23:09:37
[2020-06-23] MEDS: RISPERIDONE 0.25 MG TABLET PO PRN (23:33)
[2020-06-24] MEDS ORDERED: NORMAL SALINE 1000 ML 1,000 ML IV PRN ×2 (05:03→15:31)
[2020-06-24] MEDS: HEPARIN SOD (PORCINE) 5,000 UNIT/ML 1 ML VIAL SUBCUT SCH ×3 (05:22→21:35)
[2020-06-24 06:20] LABS: ANION GAP 6 (5-19); BLOOD UREA NITROGEN 26 mg/dL (7-20); CALCIUM 9.2 mg/dL (8.4-10.2); CARBON DIOXIDE 22 mmol/L (22-30); CHLORIDE 105 mmol/L (98-107); GLUCOSE 80 mg/dL (75-110); POTASSIUM 4.2 mmol/L (3.6-5.0)
[2020-06-24] MEDS: INSULIN LISPRO 100 UNIT/ML 3 ML VIAL SUBCUT SCH ×4 (08:11→21:35)
[2020-06-24] MEDS: METFORMIN HCL 500 MG TABLET PO SCH ×2 (08:16→15:39)
[2020-06-24] MEDS: HYDROCHLOROTHIAZIDE 12.5 MG TABLET PO SCH (08:17)
[2020-06-24] MEDS: GLIPIZIDE XL 5 MG TAB.ER.24 PO SCH (08:17)
[2020-06-24] MEDS ORDERED: AMLODIPINE BESYLATE 10 MG TABLET PO SCH (10:00)
[2020-06-24] MEDS: LOSARTAN POTASSIUM 50 MG TABLET PO SCH (11:18)
[2020-06-24] MEDS: AMLODIPINE BESYLATE 5 MG TABLET PO SCH (11:18)
[2020-06-24] MEDS: BUSPIRONE HCL 10 MG TABLET PO SCH ×2 (11:18→17:32)
[2020-06-24] MEDS: DIVALPROEX SODIUM 250 MG TAB.SR.24H PO SCH ×2 (11:19→21:30)
[2020-06-24] MEDS: PROPRANOLOL HCL 10 MG TABLET PO SCH ×2 (11:20→17:32)
[2020-06-24] MEDS: FLUTICASONE/UMECLIDIN/VILANTER 100-62.5-25 MCG/DOSE IH SCH (11:20)
[2020-06-24] MEDS: NICOTINE 14 MG/24 HR PATCH.TD24 TD SCH (13:38)
[2020-06-24 13:44] LABS: ANION GAP 8 (5-19); BLOOD UREA NITROGEN 22 mg/dL (7-20); CARBON DIOXIDE 22 mmol/L (22-30); CHLORIDE 102 mmol/L (98-107); GLUCOSE 103 mg/dL (75-110); POTASSIUM 4.2 mmol/L (3.6-5.0)
[2020-06-24] MEDS: RISPERIDONE 0.25 MG TABLET PO PRN (15:39)
--- NOTE | 2020-06-24 15:41 | PDOC PROGRESS REPORT ---
Subjective Progress Note for:: 06/24/20 Subjective:: Patient's still to be withdrawn. She has no complaints at this time. She does seem to be a little bit more willing to respond today. Reason For Visit: METABOLIC ENCEPHALOPATHY, HYPONATREMIA, BIPOLAR Physical Exam Vital Signs: Temp Pulse Resp BP Pulse Ox 97.8 F 65 18 142/90 H 100 06/23/20 20:25 06/24/20 11:24 06/24/20 11:24 06/24/20 11:24 06/24/20 11:24 Intake & Output 06/23/20 06/24/20 06/25/20 06:59 06:59 06:59 Intake Total 2440 1000 Balance 2440 1000 Weight 80.2 kg General appearance: PRESENT: no acute distress, cooperative Neck exam: ABSENT: JVD Respiratory exam: PRESENT: clear to auscultation oscar, unlabored. ABSENT: tachypnea, wheezes Cardiovascular exam: PRESENT: RRR, +S1, +S2. ABSENT: tachycardia GI/Abdominal exam: PRESENT: soft. ABSENT: rebound, rigid, tenderness Neurological exam: PRESENT: alert, awake, oriented to person, oriented to place. ABSENT: oriented to time Psychiatric exam: PRESENT: flat affect. ABSENT: agitated, anxious Results Laboratory Results: 06/23/20 13:34 06/24/20 13:14 06/23/20 06/23/20 06/24/20 22:42 22:42 05:18 Sodium 129.8 L 132.6 L Potassium 3.9 4.2 Chloride 101 105 Carbon Dioxide 21 L 22 Anion Gap 8 6 BUN 28 H 26 H Creatinine 1.75 H 1.64 H Est GFR ( Amer) 35 L 38 L Glucose 101 80 Serum Osmolality 271 L Calcium 9.0 9.2 Magnesium 2.0 TSH 06/24/20 06/24/20 05:18 13:14 Sodium 132.2 L Potassium 4.2 Chloride 102 Carbon Dioxide 22 Anion Gap 8 BUN 22 H Creatinine 1.61 H Est GFR ( Amer) 39 L Glucose 103 Serum Osmolality Calcium 9.0 Magnesium TSH 2.65 06/23/20 13:34 Troponin I < 0.012 Impressions: Chest X-Ray 06/23/20 12:07 IMPRESSION: NO ACUTE RADIOGRAPHIC FINDING IN THE CHEST. Head CT 06/23/20 12:08 IMPRESSION: Stable frontal lobe encephalomalacia. Mild small vessel disease. No acute intracranial event. EVIDENCE OF ACUTE STROKE: NO. Assessment and Plan - Diagnosis (1) Hyponatremia Is this a current diagnosis for this admission?: Yes Plan: Secondary to dehydration. Patient sodium has corrected appropriately. I did have to hold her IV fluids this morning as her sodium this morning was 132. After holding IV fluids, repeat sodium level at 3 PM today was still at 132. I will go ahead and resume patient on normal saline drip. We will check BMP again in the morning. (2) Acute metabolic encephalopathy Is this a current diagnosis for this admission?: Yes Plan: Patient has a few factors that are likely contributing to her metabolic encephalopathy. This is likely due to acute delirium from dehydration superimposed on her known TBI with encephalomalacia. It could also be due to uncontrolled bipolar disorder possibly with some depression given how withdrawn affect. Psychiatry has evaluated and left recommendations. I doubt her AARTI is causing this as she is not uremic. Though she is hyponatremic, sodium level of 125 does not typically cause you neurological changes. Head CT is negative. Urinalysis shows no evidence of urinary tract infection. Check TSH. Mildly improved today. We will continue to monitor and have patient sister help with assessment of proximity to baseline mental state. (3) Acute kidney injury Is this a current diagnosis for this admission?: Yes Plan: Baseline creatinine is normal. Creatinine was 2 on admission and has improved to 1.6. I will resume patient on normal saline infusion and check metabolic panel again in the morning. Likely this is prerenal azotemia secondary to dehydration. Avoid nephrotoxic medications. (4) Bipolar disorder Qualifiers: Active/Remission status: currently active Current bipolar episode type: depressed Current episode severity: moderate Qualified Code(s): F31.32 - Bipolar disorder, current episode depressed, moderate Is this a current diagnosis for this admission?: Yes Plan: Patient has history of bipolar and follows with Dr. Ba[facility]uelos at [facility]. Psych has evaluated and given recommendations. Patient's buspirone has been decreased. Seroquel and Cogentin stopped. Started on Depakote as recommended and as needed Risperdal for agitation/aggressive behavior. (5) Diabetes mellitus type 2 in obese Is this a current diagnosis for this admission?: Yes Plan: Continue metformin, glipizide and sliding scale insulin. (6) Tobacco dependence Is this a current diagnosis for this admission?: Yes Plan: Nicotine replacement therapy (7) Encephalomalacia Is this a current diagnosis for this admission?: Yes Plan: Involving the right frontal lobe. Sister reports it is secondary to TBI and CVA from years ago which left her with anosmia. - Time Time Spent with patient: 15-24 minutes Anticipated Discharge Disposition: Home, Self Care Anticipated Discharge Timeframe: within 24 hours
[2020-06-24] MEDS ORDERED: HALOPERIDOL LACTATE INJ 5 MG/1 ML VIAL ONE (22:57)
[2020-06-24] MEDS ORDERED: HALOPERIDOL LACTATE INJ 5 MG/1 ML VIAL IM ONE (23:45)
[2020-06-25] MEDS: RISPERIDONE 0.25 MG TABLET PO PRN (03:11)
[2020-06-25] MEDS ORDERED: HALOPERIDOL LACTATE INJ 5 MG/1 ML VIAL ONE (04:05)
[2020-06-25] MEDS ORDERED: HALOPERIDOL LACTATE INJ 5 MG/1 ML VIAL IM ONE (04:15)
[2020-06-25] MEDS: HEPARIN SOD (PORCINE) 5,000 UNIT/ML 1 ML VIAL SUBCUT SCH (05:13)
[2020-06-25 06:36] LABS: ANION GAP 15 (5-19); BLOOD UREA NITROGEN 18 mg/dL (7-20); CALCIUM 9.6 mg/dL (8.4-10.2); CARBON DIOXIDE 18 mmol/L (22-30); CHLORIDE 100 mmol/L (98-107); GLUCOSE 178 mg/dL (75-110); POTASSIUM 4.3 mmol/L (3.6-5.0)
[2020-06-25] MEDS: INSULIN LISPRO 100 UNIT/ML 3 ML VIAL SUBCUT SCH ×2 (09:49→10:49)
[2020-06-25] MEDS: METFORMIN HCL 500 MG TABLET PO SCH (10:27)
[2020-06-25] MEDS: BUSPIRONE HCL 10 MG TABLET PO SCH (10:27)
[2020-06-25] MEDS: AMLODIPINE BESYLATE 5 MG TABLET PO SCH (10:27)
[2020-06-25] MEDS: NICOTINE 14 MG/24 HR PATCH.TD24 TD SCH (10:28)
[2020-06-25] MEDS: LOSARTAN POTASSIUM 50 MG TABLET PO SCH (10:28)
[2020-06-25] MEDS: GLIPIZIDE XL 5 MG TAB.ER.24 PO SCH (10:29)
[2020-06-25] MEDS: DIVALPROEX SODIUM 250 MG TAB.SR.24H PO SCH (10:29)
[2020-06-25] MEDS: HYDROCHLOROTHIAZIDE 12.5 MG TABLET PO SCH (10:29)
[2020-06-25] MEDS: FLUTICASONE/UMECLIDIN/VILANTER 100-62.5-25 MCG/DOSE IH SCH (10:30)
[2020-06-25] MEDS: PROPRANOLOL HCL 10 MG TABLET PO SCH (10:33)
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
--- NOTE | 2020-06-25 12:14 | PDOC DISCHARGE SUMMARY ---
Impression - Admit/DC Date/PCP Admission Date/Primary Care Provider: 06/23/20 15:39 ANJALI CUELLAR PA-C Discharge Date: 06/25/20 - Discharge Diagnosis (1) Hyponatremia Is this a current diagnosis for this admission?: Yes (2) Acute metabolic encephalopathy Is this a current diagnosis for this admission?: Yes (3) Bipolar disorder Is this a current diagnosis for this admission?: Yes (4) Acute kidney injury Is this a current diagnosis for this admission?: Yes (5) Diabetes mellitus type 2 in obese Is this a current diagnosis for this admission?: Yes (6) Tobacco dependence Is this a current diagnosis for this admission?: Yes (7) Encephalomalacia Is this a current diagnosis for this admission?: Yes - Additional Information Discharge Diet: As Tolerated Discharge Activity: Activity As Tolerated Referrals: ANJALI CUELLAR PA-C [Primary Care Provider] - Follow up as needed Prescriptions: Buspirone HCl [Buspar 10 mg Tablet] 5 mg PO BID 30 Days #30 tablet Divalproex Sodium [Depakote ER 250 mg Tablet] 250 mg PO Q12 #60 tab.sr.24h Risperidone [Risperdal 0.25 mg Tablet] 0.25 mg PO HSP PRN #20 tablet PRN Reason: Home Medications: Amlodipine Besylate 5 mg PO DAILY 01/23/18 Hydrochlorothiazide 12.5 mg PO DAILY 01/23/18 Pravastatin Sodium 40 mg PO DAILY 01/23/18 Propranolol HCl [Inderal 10 mg Tablet] 10 mg PO BID 01/23/18 Albuterol Sulfate [Proair HFA Inhalation Aerosol 8.5 gm MDI] 2 puff IH Q6HP PRN 06/23/20 Fluticasone/Umeclidin/Vilanter [Trelegy 100-62.5-25 Mcg Ellipta 14 Dose/Dpi] 1 each PO DAILY 06/23/20 Glipizide [Glipizide Xl] 10 mg PO DAILY 06/23/20 Losartan Potassium [Cozaar 50 mg Tablet] 50 mg PO DAILY 06/23/20 Metformin HCl [Metformin HCl ER] 2,000 mg PO DAILY 06/23/20 Buspirone HCl [Buspar 10 mg Tablet] 5 mg PO BID 30 Days #30 tablet 06/25/20 Divalproex Sodium [Depakote ER 250 mg Tablet] 250 mg PO Q12 #60 tab.sr.24h 06/25/20 Risperidone [Risperdal 0.25 mg Tablet] 0.25 mg PO HSP PRN #20 tablet 06/25/20 History of Present Illiness History of Present Illness: MICHELLE PIRES is a 65 year old female with a history of bipolar disorder, diabetes mellitus type 2, hypertension, presents to the hospital for evaluation of altered mental status which has become more more notable over the past few days. History mostly obtained from patient's sister and power of managing attorney Akila Stephens with some history taken from patient. Akila reports that patient has been getting more more confused. She states that she took her to see the primary care provider today who did some blood work as stated that she was dehydrated and subsequently referred to the hospital. Patient denies any shortness of breath, chest pain fever or chills. She denies polyuria or dysuria. Patient is not very cooperative with interview. She is seen ripping off her tube operator stating that she does not needed. Hospital Course Hospital Course: Patient was brought in by her sister for evaluation of behavioral changes. Patient has history of bipolar disorder and follows with Dr. Bañuelos who she sees regularly but has not made any changes to medications in the past 2 years. She was on Seroquel, propranolol and benztropine. 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 Chest x-ray was also unremarkable. Urinalysis was negative. Blood work revealed elevated creatinine of 2 [baseline is normal], hyponatremia of 125. Patient was suspected to be dehydrated which could also contribute to acute delirium potentiating behavioral changes. It was thought to be unlikely that patient's hyponatremia of 125 was responsible for behavioral changes and that AARTI of 2 would also contribute to mental changes. A TSH was also normal. Her behavior changes were thought to be secondary to either delirium from dehydration superimposed on her already known traumatic brain injury/cognitive impairment or due to bipolar disorder with some depressive symptoms. I asked psych to evaluate patient and they recommended changing patient's antipsychotic medications including reducing buspirone dose to 5 mg twice a day, starting patient on Depakote, Risperdal as needed for aggression/agitation/restlessness and discontinuing Seroquel and Cogentin. He also recommended that patient did not need any involuntary confinement. Patient was adequately hydrated with normal saline and her hyponatremia improved with adequate correction goal. Last sodium upon discharge was 132. Patient's AARTI also improved and creatinine dropped to 1.3. Patient has been instructed to follow-up with primary care provider for repeat BMP in 2 weeks as well as follo wing up with her psychiatrist Dr. Bañuelos. Patient was seen by psychiatry again today before being cleared for discharge. Home health aide will be set up for patient. Physical Exam Vital Signs: Temp Pulse Resp BP Pulse Ox 98.2 F 55 L 17 132/74 H 98 06/24/20 19:18 06/24/20 19:18 06/24/20 19:18 06/24/20 19:18 06/24/20 19:18 Intake & Output 06/24/20 06/25/20 06/26/20 06:59 06:59 06:59 Intake Total 2440 1940 Output Total 500 Balance 2440 1440 Weight 80.2 kg 81.2 kg General appearance: PRESENT: no acute distress, cooperative Neck exam: ABSENT: JVD Respiratory exam: PRESENT: clear to auscultation oscar Cardiovascular exam: PRESENT: +S1, +S2. ABSENT: tachycardia GI/Abdominal exam: PRESENT: soft. ABSENT: tenderness Neurological exam: PRESENT: alert, awake Psychiatric exam: PRESENT: anxious, unusual affect - Withdrawn Focused psych exam: PRESENT: restlessness Results Laboratory Results: WBC 4.7 10^3/uL (4.0-10.5) 06/23/20 13:34 RBC 4.15 10^6/uL (3.72-5.28) 06/23/20 13:34 Hgb 13.3 g/dL (12.0-15.5) 06/23/20 13:34 Hct 38.4 % (36.0-47.0) 06/23/20 13:34 MCV 92 fl (80-97) 06/23/20 13:34 MCH 32.0 pg (27.0-33.4) 06/23/20 13:34 MCHC 34.7 g/dL (32.0-36.0) 06/23/20 13:34 RDW 13.7 % (11.5-14.0) 06/23/20 13:34 Plt Count 272 10^3/uL (150-450) 06/23/20 13:34 Lymph % (Auto) 33.8 % (13-45) 06/23/20 13:34 [place] % (Auto) 9.2 % (3-13) 06/23/20 13:34 Eos % (Auto) 0.4 % (0-6) 06/23/20 13:34 Baso % (Auto) 0.4 % (0-2) 06/23/20 13:34 Absolute Neuts (auto) 2.6 10^3/uL (1.7-8.2) 06/23/20 13:34 Absolute Lymphs (auto) 1.6 10^3/uL (0.5-4.7) 06/23/20 13:34 Absolute Monos (auto) 0.4 10^3/uL (0.1-1.4) 06/23/20 13:34 Absolute Eos (auto) 0.0 10^3/uL (0.0-0.6) 06/23/20 13:34 Absolute Basos (auto) 0.0 10^3/uL (0.0-0.2) 06/23/20 13:34 Seg Neutrophils % 56.2 % (42-78) 06/23/20 13:34 Sodium 132.8 mmol/L (137-145) L 06/25/20 05:18 Potassium 4.3 mmol/L (3.6-5.0) 06/25/20 05:18 Chloride 100 mmol/L (98-107) 06/25/20 05:18 Carbon Dioxide 18 mmol/L (22-30) L 06/25/20 05:18 Anion Gap 15 (5-19) 06/25/20 05:18 BUN 18 mg/dL (7-20) 06/25/20 05:18 Creatinine 1.34 mg/dL (0.52-1.25) H 06/25/20 05:18 Est GFR ( Amer) 48 (>60) L 06/25/20 05:18 Est GFR (MDRD) Non-Af 40 (>60) L 06/25/20 05:18 Glucose 178 mg/dL (75-110) H 06/25/20 05:18 POC Glucose 164 mg/dL (70-110) H 06/25/20 10:39 Serum Osmolality 271 mOsm/kg (275-301) L 06/23/20 22:42 Calcium 9.6 mg/dL (8.4-10.2) 06/25/20 05:18 Magnesium 2.0 mg/dL (1.6-2.3) 06/24/20 05:18 Total Bilirubin 0.6 mg/dL (0.2-1.3) 06/23/20 13:34 Direct Bilirubin 0.1 mg/dL (0.0-0.4) 06/23/20 13:34 Neonat Total Bilirubin Not Reportable 06/23/20 13:34 Neonat Direct Bilirubin Not Reportable 06/23/20 13:34 Neonat Indirect Bili Not Reportable 06/23/20 13:34 AST 38 U/L (14-36) H 06/23/20 13:34 ALT 27 U/L (<35) 06/23/20 13:34 Alkaline Phosphatase 91 U/L (38-126) 06/23/20 13:34 Troponin I < 0.012 ng/mL 06/23/20 13:34 Total Protein 8.9 g/dL (6.3-8.2) H 06/23/20 13:34 Albumin 5.0 g/dL (3.5-5.0) 06/23/20 13:34 TSH 2.65 uIU/mL (0.47-4.68) 06/24/20 05:18 Urine Color STRAW 06/23/20 14:40 Urine Appearance CLEAR 06/23/20 14:40 Urine pH 5.0 (5.0-9.0) 06/23/20 14:40 Ur Specific [place] 1.005 06/23/20 14:40 Urine Protein NEGATIVE mg/dL (NEGATIVE) 06/23/20 14:40 Urine Glucose (UA) NEGATIVE mg/dL (NEGATIVE) 06/23/20 14:40 Urine Ketones NEGATIVE mg/dL (NEGATIVE) 06/23/20 14:40 Urine Blood NEGATIVE (NEGATIVE) 06/23/20 14:40 Urine Nitrite NEGATIVE (NEGATIVE) 06/23/20 14:40 Urine Bilirubin NEGATIVE (NEGATIVE) 06/23/20 14:40 Urine Urobilinogen NEGATIVE mg/dL (<2.0) 06/23/20 14:40 Ur Leukocyte Esterase NEGATIVE (NEGATIVE) 06/23/20 14:40 Urine WBC (Auto) 2 /HPF 06/23/20 14:40 Urine RBC (Auto) 0 /HPF 06/23/20 14:40 Urine Bacteria (Auto) TRACE /HPF 06/23/20 14:40 Squamous Epi Cells Auto 2 /HPF 06/23/20 14:40 Urine Ascorbic Acid 20 (NEGATIVE) H 06/23/20 14:40 06/23/20 13:34 Troponin I < 0.012 Impressions: Chest X-Ray 06/23/20 12:07 IMPRESSION: NO ACUTE RADIOGRAPHIC FINDING IN THE CHEST. Head CT 06/23/20 12:08 IMPRESSION: Stable frontal lobe encephalomalacia. Mild small vessel disease. No acute intracranial event. EVIDENCE OF ACUTE STROKE: NO. Plan Time Spent: Less than 30 Minutes Stroke Is this a Stroke Patient?: No Acute Heart Failure - Is this a Heart Failure Patient?: No
[2020-06-25 13:12] VITALS: BP 142/90
== END 2020-06-25 13:30 | disposition home or self-care (01) | DRG 640 ==
LOC: ER 11:46 → EH 15:39 → 4W 17:21
PROVIDERS: ADMIT Internal Medicine; ATTEND Internal Medicine
DX: E86.0 Dehydration (principal); G93.41 Metabolic encephalopathy; N17.9 Acute kidney failure, unspecified; F31.32 Bipolar disorder, current episode depressed, moderate; E87.1 Hypo-osmolality and hyponatremia; F31.9 Bipolar disorder, unspecified; E11.9 Type 2 diabetes mellitus without complications; G93.89 Other specified disorders of brain; I10 Essential (primary) hypertension; E78.5 Hyperlipidemia, unspecified; F17.210 Nicotine dependence, cigarettes, uncomplicated; E66.9 Obesity, unspecified; R41.0 Disorientation, unspecified; E78.00 Pure hypercholesterolemia, unspecified; Z79.899 Other long term (current) drug therapy; Z79.84 Long term (current) use of oral hypoglycemic drugs; Z87.820 Personal history of traumatic brain injury; Z88.6 Allergy status to analgesic agent; Z88.0 Allergy status to penicillin; Z83.3 Family history of diabetes mellitus
CPT/HCPCS: 36415; 70450; 71045; 80048; 80053; 81001; 82962; 83735; 83930; 84443; 84484; 85025; 87086; 93005; 93010; 96360; 96361; 99285; J1630; J3490; J7030

== ENCOUNTER → 2020-08-03 | Outpatient (CLI) | payer MEDICARE ==
[2020-08-03 11:45] LABS: ABSOLUTE EOSINOPHILS # (AUTO) 0.1 10^3/uL (0.0-0.6); ABSOLUTE LYMPHOCYTES (AUTO) 2.4 10^3/uL (0.5-4.7); ABSOLUTE MONOCYTES (AUTO) 0.7 10^3/uL (0.1-1.4); ABSOLUTE NEUT (AUTO) 3.1 10^3/uL (1.7-8.2); BASOPHILS % (AUTO) 0.6 % (0-2); EOSINOPHILS % (AUTO) 1.4 % (0-6); HEMATOCRIT 35.2 % (36.0-47.0); HEMOGLOBIN 11.8 g/dL (12.0-15.5); LYMPHOCYTES % (AUTO) 37.9 % (13-45); MEAN CORPUSCULAR HEMOGLOBIN 31.2 pg (27.0-33.4); MEAN CORPUSCULAR HGB CONC 33.5 g/dL (32.0-36.0); MEAN CORPUSCULAR VOLUME 93 fl (80-97); MONOCYTES % (AUTO) 10.8 % (3-13); PLATELET COUNT 245 10^3/uL (150-450); RED BLOOD COUNT 3.77 10^6/uL (3.72-5.28); RED CELL DISTRIBUTION WIDTH 14.2 % (11.5-14.0); SEGMENTED NEUTROPHILS % (AUTO) 49.3 % (42-78); TOTAL CELLS COUNTED % (AUTO) 100 %; WHITE BLOOD COUNT 6.3 10^3/uL (4.0-10.5)
[2020-08-03 12:06] LABS: ALBUMIN 3.9 g/dL (3.5-5.0); ALKALINE PHOSPHATASE 70 U/L (38-126); ANION GAP 7 (5-19); ASPARTATE AMINO TRANSFERASE 25 U/L (14-36); BILIRUBIN,DIRECT 0.3 mg/dL (0.0-0.4); BILIRUBIN,TOTAL 0.3 mg/dL (0.2-1.3); BLOOD UREA NITROGEN 20 mg/dL (7-20); CALCIUM 9.8 mg/dL (8.4-10.2); CARBON DIOXIDE 30 mmol/L (22-30); CHLORIDE 102 mmol/L (98-107); GLUCOSE 229 mg/dL (75-110); POTASSIUM 4.8 mmol/L (3.6-5.0); TOTAL PROTEIN 6.8 g/dL (6.3-8.2)
== END ==
LOC: OD 11:14
PROVIDERS: ATTEND Psychiatry & Neurology Psychiatry
DX: F31.9 Bipolar disorder, unspecified (principal); Z79.899 Other long term (current) drug therapy
CPT/HCPCS: 36415; 80053; 80164; 82140; 85025

== ENCOUNTER → 2020-10-16 | Outpatient (CLI) | payer MEDICARE ==
[2020-10-16 10:51] LABS: ABSOLUTE EOSINOPHILS # (AUTO) 0.1 10^3/uL (0.0-0.6); ABSOLUTE LYMPHOCYTES (AUTO) 2.5 10^3/uL (0.5-4.7); ABSOLUTE MONOCYTES (AUTO) 0.5 10^3/uL (0.1-1.4); ABSOLUTE NEUT (AUTO) 2.7 10^3/uL (1.7-8.2); BASOPHILS % (AUTO) 0.8 % (0-2); EOSINOPHILS % (AUTO) 1.7 % (0-6); HEMATOCRIT 37.8 % (36.0-47.0); HEMOGLOBIN 12.8 g/dL (12.0-15.5); LYMPHOCYTES % (AUTO) 43.2 % (13-45); MEAN CORPUSCULAR HEMOGLOBIN 31.2 pg (27.0-33.4); MEAN CORPUSCULAR HGB CONC 33.8 g/dL (32.0-36.0); MEAN CORPUSCULAR VOLUME 92 fl (80-97); MONOCYTES % (AUTO) 7.9 % (3-13); PLATELET COUNT 218 10^3/uL (150-450); RED BLOOD COUNT 4.09 10^6/uL (3.72-5.28); SEGMENTED NEUTROPHILS % (AUTO) 46.4 % (42-78); TOTAL CELLS COUNTED % (AUTO) 100 %; WHITE BLOOD COUNT 5.9 10^3/uL (4.0-10.5)
[2020-10-16 11:00] LABS: ALBUMIN 4.3 g/dL (3.5-5.0); ALKALINE PHOSPHATASE 85 U/L (38-126); ASPARTATE AMINO TRANSFERASE 19 U/L (14-36); BILIRUBIN,DIRECT 0.1 mg/dL (0.0-0.4); BILIRUBIN,TOTAL 0.3 mg/dL (0.2-1.3)
== END ==
LOC: OD 09:31
PROVIDERS: ATTEND Psychiatry & Neurology Psychiatry
DX: F31.9 Bipolar disorder, unspecified (principal); Z79.899 Other long term (current) drug therapy
CPT/HCPCS: 36415; 80076; 80164; 85025